=== PATIENT | female | born 1935 | race Asian ===

== ENCOUNTER 2016-07-19 02:31 | Inpatient (IN) | payer OTHER ==
[2016-07-19] VITALS (7 sets, daily range): BP systolic 130–168; BP diastolic 73–105
[~2016-07-19] VITALS: Ht 162.6 cm; Wt 78.5 kg
--- NOTE | 2016-07-19 02:31 | NUR ---
Patient being evaluated by physician at bedside.
--- NOTE | 2016-07-19 02:31 | NUR ---
[facility] TO ER BED 2
[2016-07-19] MEDS ORDERED: NACL 0.9% 1,000 ML IV ONE (02:33)
[2016-07-19] MEDS ORDERED: ALBUTEROL SULFATE/IPRATROPIU 3 ML SOL IH ONE (02:35)
[2016-07-19] MEDS ORDERED: methylPREDNISolone SS 125 MG in WATER STERILE 2 ML IV ONE (02:35)
--- NOTE | 2016-07-19 02:40 | NUR ---
PT BIB AMBULANCE DUE TO SOB. PLACED ON BIPAP WITH NOTED SETTINGS. BREATH SOUNDS DIMINISHED BILATERALLY, ABG DONE, HHN INLINE TX GIVEN. BIPAP ALARMS ON AND AUDIBLE, BIPAP PLUGGED INTO RED ELECTRICAL OUTLET. AMBU BAG AT [facility].
--- NOTE | 2016-07-19 02:40 | NUR ---
Note undone in EDM - 07/19/16 at 0320 by MEDPA 81/F [facility] AND [facility] C/O SOB X 30MIN, ALOC, B-PAP,HHN ER MD AT BEDSIDE. RATE12 35% FIO2, IPAP-12/EPAP-5. AAOx4, PERMIN. KISHAD NOTIFIED OF PATIENT STATUS.
[2016-07-19] MEDS ORDERED: LEVOFLOXACIN 750 MG/D5W PREMIX 150 ML IV ONE (02:55)
[2016-07-19] MEDS ORDERED: AMOXICILLIN500 MG PO (02:57)
[2016-07-19] MEDS ORDERED: GOOD SENSE OMEP20 MG PO (02:57)
[2016-07-19] MEDS ORDERED: SINEMET 25-1001 TA1 PO (02:57)
[2016-07-19] MEDS ORDERED: [UNRECOGNIZED DRUG - OTHER] PO (02:57)
[2016-07-19] MEDS ORDERED: PHENERGAN/CODEIN5 ML PO (02:57)
[2016-07-19] MEDS ORDERED: TENORMIN50 M1 PO (02:57)
--- NOTE | 2016-07-19 03:20 | NUR ---
81/F BIB [facility] AND [facility] C/O SOB X 30MIN, ALOC, B-PAP,HHN ER MD AT BEDSIDE. RATE12 35% FIO2, IPAP-12/EPAP-5. PATIENT STATES PAIN OF 0/10 AT THIS TIME; VSS; PATIENT POSITIONED FOR COMFORT; HOB ELEVATED; BEDRAILS UP X2; BED DOWN. ER MD MADE AWARE OF PT STATUS.
--- NOTE | 2016-07-19 03:21 | NUR ---
Patient being evaluated by physician at bedside.
--- NOTE | 2016-07-19 03:30 | NUR ---
# 16 FR [place] catheter with ml utilizing sterile technique. Immediate return of ml urine noted. Bedside drainage bag placed below level of bladder. Urine sample collected and sent to lab. Pt tolerated procedure .
[2016-07-19] MEDS ORDERED: NACL 0.9% 1,500 ML IV ONE (03:45)
[2016-07-19] MEDS ORDERED: ONDANSETRON 4 MG/2 ML VIAL IVP PRN (04:20)
[2016-07-19] MEDS ORDERED: ACETAMINOPHEN 325 MG TAB PO PRN (04:20)
--- NOTE | 2016-07-19 04:21 | NUR ---
Patient will be admitted to care of DR LAU. Admited to TELE. Will go to room 109A. Belongings list completed. Report to VANI MARTIN.
[2016-07-19] MEDS ORDERED: ALBUTEROL 0.083% 2.5 MG/3 ML NEBU INH PRN (04:35)
--- NOTE | 2016-07-19 04:45 | NUR ---
RECEIVED PT FROM ER IN ROOM 109A. RESPIRATORY THERAPIST AT BEDSIDE CONNECTING PT TO BIPAP. NOTED SETTING AT THIS TIME ARE IPAP 12, EPAP 5, R12 AND FIOX 35%. PT OXYGEN SATURATION ON BIPAP IS NOTED AT 98%. PT IS SLOVAK SPEAKING, SON AT BEDSIDE TO TRANSLATE. PER SON JOSEPHINE, PT IS ALERT AND ORIENTED, STATES THAT PT IS NOT CONFUSED. PT DENIES PAIN OR CHEST PAIN. UPON AUSCULTATION, NOTED BILATERAL WHEEZES TO LUNGS, NOTED RR 26. IV ACCESS TO LEFT WRIST #20G, PATENT AND INTACT. SKIN INTACT. WILSON CATHETER IN PLACE DRAINING TO GRAVITY, OF YELLOW URINE. NO EDEMA NOTED. SAFETY AND FALL RISK PRECAUTIONS IMPLEMENTED. DISCUSSED PLAN OF CARE WITH PT AND SON, VERBALIZED UNDERSTANDING. CALL LIGHT WITHIN REACH. WILL CONTINUE TO MONITOR PT.
[2016-07-19] MEDS ORDERED: CLINDAMYCIN 600 MG/4 ML VIAL ONE (05:01)
[2016-07-19] MEDS: CLINDAMYCIN 600 MG in DEXTROSE 5% 50 ML IV SCH ×3 (05:02→20:18)
[2016-07-19] MEDS ORDERED: PNEUMOCOCCAL VACCINE 23 MCG/0.5 ML VIAL IMVAC SCH (05:45)
--- NOTE | 2016-07-19 05:46 | NUR ---
BIPAP CHECKED. PT AWAKE, HUMA BIPAP WELL. FAMILY AT BEDSIDE.
[2016-07-19] MEDS ORDERED: DEXTROSE 50% 50 ML SYR IVP PRN (06:15)
[2016-07-19] MEDS: ALBUTEROL 0.083% 2.5 MG/3 ML NEBU INH SCH ×2 (06:30→10:15)
[2016-07-19] MEDS: BLOOD GLUCOSE MONITORING 1 DEV DEV FS SCH ×4 (06:30→20:28)
--- NOTE | 2016-07-19 06:30 | NUR ---
REC'D PT ON ANA LILIA V60 BIPAP SETTINGS 12/5 RR 12 FIO2 35% ALARMS ON AND FUNCTIONING PROPERLY, AMBU BAG AT SIDE OF BIPAP AND BIPAP IS PLUGGED INTO RED OUTLET, I\L TX GIVEN WITH ALBUTEROL 2.5MG WITH NO ADVERSE REACTION POST TX B\S ARE DIMINISHED BILATERALLY, PT IS WEARING MED FACE MASK AND SKIN INTEGRITY IS INTACT
--- NOTE | 2016-07-19 06:30 | NUR ---
PT IS VERY AGITATED AND ANXIOUS VANI MARTIN NOTIFIED PT'S SON KEEPS RUBBING ON HER AND MAKING HER UPSET, VANI MARTIN CALLED AND INFORMED DRBella ON PTS CONDITION STATING MAYBE SHE NEEDS SOMETHING TO CALM HER HE DID ORDER ANY MEDS FOR HER. THE SON HAS BEEN ASKED TO LEAVE PT ALONE SO SHE CAN REST AND STILL WONT LEAVE HER ALONE
[2016-07-19] MEDS: INSULIN ASPART SLIDING SCALE 100 UNITS/ML VIAL SUBQ PRN ×4 (06:31→21:28)
--- NOTE | 2016-07-19 06:31 | NUR ---
PT GIVEN INSULIN COVERAGE FOR BLOOD GLUCOSE OF 300 PER MD ORDERS. WILL CONTINUE TO MONITOR PT.
--- NOTE | 2016-07-19 06:53 | NUR ---
MADE DR. OLIVA AWARE OF PT HAVING DIFFICULTY BREATHING, PT FEELING ANXIOUS AND BP OF 170/89. NOTED INCREASED RESPIRATORY RATE, MD AWARE. NO NEW ORDERS RECEIVED. PHYSICIAN TO SEE PT. RECOMMENDED PT TO HAVE MEDICATION AND OR MAYBE TRANSFER TO ICU.
--- NOTE | 2016-07-19 07:36 | NUR ---
ENDORSED PT TO STEPHANIE LUDWIG FOR CONTINUITY OF CARE AT PT BEDSIDE, PT OXYGEN SATURATION AT 97%, BIPAP STILL IN PLACE. PT ON CONTINUOUS PULSE OX.
--- NOTE | 2016-07-19 07:39 | NUR ---
RECEIVED REPORT FROM NIGHT RN. PT RESTING IN BED.AAOX3. PT ON BIPAP RT AT BEDSIDE. PT'S RESPIRATORY RATE IS 36. PT'S BREATHING IS LABORED. PT DENIES PAIN. IV SITE PATENT AND INTACT. WILSON CATHETER IS PATENT. CALL LIGHT WITHIN REACH. SAFETY MEASURES ENSURED. SON AT BEDSIDE. WILL CONTINUE TO MONITOR.
--- NOTE | 2016-07-19 07:52 | NUR ---
DR. EMMANUEL MADE AWARE OF PT'S LABORED BREATHING AND RR OF 40. NEW ORDERS RECEIVED. TO SEE PT.
[2016-07-19] MEDS ORDERED: CARBIDOPA/LEVODOPA 25/100 MG 1 TAB PO SCH (08:04)
[2016-07-19] MEDS ORDERED: FUROSEMIDE 40 MG/4 ML VIAL IVP SCH ×2 (08:05→08:08)
[2016-07-19] MEDS ORDERED: PANTOPRAZOLE 40 MG TABEC PO SCH (08:09)
--- NOTE | 2016-07-19 08:44 | NUR ---
bipap check, pt is now resting, pt is still tachypnea son is at bedside
[2016-07-19] MEDS: DOCUSATE SODIUM 100 MG GELCAP PO SCH (09:00)
[2016-07-19] MEDS: SACCHAROMYCES 250 MG CAP PO SCH ×2 (09:00→20:19)
[2016-07-19] MEDS: ATENOLOL 50 MG TAB PO SCH (09:00)
--- NOTE | 2016-07-19 09:42 | NUR ---
DR. EMMANUEL MADE AWARE OF PT REFUSING PO MEDICATIONS. PT STATES ITS TOO HARD TO BREATHE WHEN THE MASK ISNT ON RIGHT.
--- NOTE | 2016-07-19 09:45 | NUR ---
DR. EMMANUEL AT BEDSIDE. PT'S BREATHING APPEARS LABORED ON BIPAP. PT DENIES PAIN. WILL FOLLOW UP WITH PLAN OF CARE.
[2016-07-19] MEDS ORDERED: methylPREDNISolone SS 125 MG/2 ML VIAL IVP SCH ×2 (09:50→10:25)
--- NOTE | 2016-07-19 10:00 | NUR ---
ABG DRAWN ON RB WITHOUT INCIDENT AND RESULTS GIVEN TO DR. OLIVA AND NO CHANGES MADE TO BIPAP
--- NOTE | 2016-07-19 10:15 | NUR ---
BIPAP CHECK, I\L TX GIVEN WITH ALBUTEROL 2.MG WITH NO ADVERSE REACTION POST TX B\S ARE DIMINISHED. DR. SAVAGE AT BEDSIDE WITH NO CHANGES MADE TO BIPAP. KEEP O2 SAT ABOVE 92%
--- NOTE | 2016-07-19 11:50 | NUR ---
PT SLEEPING IN BED. NO S/S OF ACUTE DISTRESS. CALL LIGHT WITHIN REACH. FAMILY AT BEDSIDE. WILL CONTINUE TO MONITOR.
[2016-07-19] MEDS: CARBIDOPA/LEVODOPA 25/100 MG 1 TAB PO SCH ×2 (12:00→16:58)
[2016-07-19] MEDS: methylPREDNISolone SS 125 MG/2 ML VIAL IVP SCH ×2 (13:05→20:18)
[2016-07-19] MEDS ORDERED: NACL 0.9% 1,000 ML IV SCH (13:05)
--- NOTE | 2016-07-19 13:20 | NUR ---
BIPAP CHECK, PT IS NOW RESTING COMFORTABLY WITH FAMILY MEMBERS AT BEDSIDE
--- NOTE | 2016-07-19 14:40 | NUR ---
PT RESTING IN BED. NO S/S OF ACUTE DISTRESS. PT DENIES PAIN. BIPAP IN PLACE. CALL LIGHT WITHIN REACH. WILL CONTINUE TO MONITOR.
[2016-07-19] MEDS: ALBUTEROL SULFATE/IPRATROPIU 3 ML SOL IH SCH ×2 (15:31→20:21)
--- NOTE | 2016-07-19 15:31 | NUR ---
BIPAP CHECK, I\L TX GIVEN WITH DUONEB 3ML WITH NO ADVERSE REACTION POST TX,. B\S ARE DIMINISHED, DECREASED FIO2 TO 30% PT IS NOW RESTING COMFORTABLY NOW
--- NOTE | 2016-07-19 16:59 | NUR ---
PT RESTING IN BED. NO S/S OF ACUTE DISTRESS. PT DENIES PAIN. CALL LIGHT WITHIN REACH. WILL CONTINUE TO MONITOR.
--- NOTE | 2016-07-19 17:30 | NUR ---
bipap check pt is having ultra sound of leg with family at bedside
--- NOTE | 2016-07-19 17:56 | NUR ---
SPOKE TO DR. OLIVA REGARDING PT NOT EATING AND BLOOD SUGAR. PER MD HOLD 1700 INSULIN AND RECHECK AT NEXT SCHEDULED TIME.
--- NOTE | 2016-07-19 19:14 | NUR ---
ENDORSED PLAN OF CARE TO NIGHT RN. PT REMAINS IN STABLE CONDITION.
--- NOTE | 2016-07-19 19:18 | NUR ---
RECEIVED REPORT FROM DAYSHIFT RN FOR CONTINUITY OF CARE. PATIENT IS A&OX3. SHIFT ASSESSMENT DONE, VS TAKEN. PATIENT IS STABLE. NO S/S OF RESPIRATORY DISTRESS ON BIPAP AT THIS TIME, O2 SAT 99-100%. PATIENT DENIES PAIN AT THIS TIME. IV TO LT WRIST 20 GAUGE PATENT AND INFUSING FLUIDS WELL. WILSON CATHETER IN PLACE. SKIN INTACT, EDEMA TO BLE NOTED. SAFETY/ FALL PRECAUTIONS ENFORCED. SCDS IN PLACE. CALL LIGHT WITHIN REACH, WILL CONTINUE TO MONITOR.
--- NOTE | 2016-07-19 20:18 | NUR ---
MEDICATIONS ADMINISTERED PER MD ORDER, TOLERATED WELL. PT ON BIPAP, RT IN ROOM FOR BREATHING TX. CALL LIGHT WITHIN REACH.
--- NOTE | 2016-07-19 21:28 | NUR ---
PT BLOOD SUGAR 295, INSULIN GIVEN PER MD ORDER. PT STATES DIFFICULTY BREATHING WITH BIPAP. CONTACTED RT AND EDUCATED PT.
[2016-07-19] MEDS: HYDROcodone/APAP 5/325 MG 1 TAB TAB PO PRN (23:36)
--- NOTE | 2016-07-19 23:36 | NUR ---
PT C/O 11/21 LOWER BACK PAIN, MEDICATED PER MD ORDER. PT FAMILY MEMBER PROVIDING MASSAGE. PT IS UP SITTING AT EDGE OF BED NO S/S OF DISTRESS NOTED. CALL LIGHT PLACED WITHIN REACH.
[2016-07-20] VITALS: BP 154/74
--- NOTE | 2016-07-20 00:42 | NUR ---
VS TAKEN, STABLE. REPOSITIONED PATIENT. PT REFUSING SCDS AT THIS TIME. CALL LIGHT WITHIN REACH.
--- NOTE | 2016-07-20 03:00 | NUR ---
PT IS SLEEPING ON BIPAP. NO S/S OF DISTRESS NOTED.
[2016-07-20 04:00] VITALS: BP 142/60
[2016-07-20] MEDS: CLINDAMYCIN 600 MG in DEXTROSE 5% 50 ML IV SCH ×3 (04:13→20:10)
--- NOTE | 2016-07-20 04:15 | NUR ---
VS TAKEN, STABLE. DUE ANTIBIOTICS ADMINISTERED. WILL CONTINUE TO MONITOR.
[2016-07-20] MEDS: methylPREDNISolone SS 40 MG/ML VIAL IVP SCH ×3 (05:20→20:10)
[2016-07-20] MEDS: PANTOPRAZOLE 40 MG TABEC PO SCH (05:41)
[2016-07-20] MEDS: BLOOD GLUCOSE MONITORING 1 DEV DEV FS SCH ×4 (05:50→20:21)
--- NOTE | 2016-07-20 05:52 | NUR ---
BLOOD SUGAR 307, WILL ADMINISTER INSULIN PER MD ORDER. REMOVED BIPAP AND PROVIDED ORAL CARE. WILL CONTINUE TO MONITOR.
[2016-07-20] MEDS: INSULIN ASPART SLIDING SCALE 100 UNITS/ML VIAL SUBQ PRN ×4 (06:11→21:38)
[2016-07-20] MEDS: ALBUTEROL SULFATE/IPRATROPIU 3 ML SOL IH SCH ×4 (06:37→19:32)
--- NOTE | 2016-07-20 06:37 | NUR ---
RECEIVED PT ON QUACH V60 ON ST 12\5 RR 12 FIO2 30 ALARMS ARE ON AND FUNCTIONAL PT IN HF AWAKE DAUGHTER AT BEDSIDE PT WEARING F\F MASK BS RHONCI BIPAP PLUGGED INTO RED OUTLET NO DISTRESS NOTED I\L HHN GIVEN WITH 3 MG DUONEB SIZE MED MASK GEL UNDER MASK
--- NOTE | 2016-07-20 07:26 | NUR ---
ENDORSED PATIENT TO MILTON RN FOR CONTINUITY OF CARE, PATIENT IS STABLE.
--- NOTE | 2016-07-20 07:30 | NUR ---
RECEIVED ON BED AAOX3 WITH PERIODS OF CONFUSION, TRINIDADIAN SPEAKING ONLY. NO SOB NOTED, ON BIPAP WITH 100% O2 SATURATION. NO SIGNS OF PAIN AT THIS TIME. IV TO LT WRIST PATENT AND INTACT. CHEST, DIMINISHED AIR ENTRY TO THE BASES. ABDOMEN SOFT, BOWEL SOUNDS PRESENT. WITH WILSON CATHETER DRAINING MODERATE AMOUNTS OF SLIGHTLY CLOUDY TOMMY URINE. WILL REPOSITION PT EVERY 2 HRS. INSTRUCTED PT TO CALL FOR ASSISTANCE, CALL LIGHT WITHIN REACH, BED ALARM ON AND ON LOW POSITION. PT VERBALIZED PARTIAL UNDERSTANDING.
--- NOTE | 2016-07-20 07:55 | NUR ---
REMOVED BIPAP PER MILTON RN PLACED 2 L N\C FOR PT TO EAT SPO2 100
[2016-07-20 08:00] VITALS: BP 146/69
[2016-07-20] MEDS: CARBIDOPA/LEVODOPA 25/100 MG 1 TAB PO SCH ×3 (08:00→17:00)
--- NOTE | 2016-07-20 08:23 | NUR ---
REPORTED TO DR SAVAGE PT ON 2L TOLERATING WELL AT THIS TIME
[2016-07-20] MEDS: SACCHAROMYCES 250 MG CAP PO SCH ×2 (09:00→20:10)
[2016-07-20] MEDS: DOCUSATE SODIUM 100 MG GELCAP PO SCH (09:00)
[2016-07-20] MEDS: HYDROcodone/APAP 5/325 MG 1 TAB TAB PO PRN ×2 (09:05→15:35)
[2016-07-20] MEDS: ATENOLOL 50 MG TAB PO SCH (09:08)
--- NOTE | 2016-07-20 10:04 | NUR ---
PATIENT HAS BEEN SCREENED AND CATEGORIZED HIGH NUTRITION RISK. PATIENT WILL BE SEEN WITHIN 1-2 DAYS OF ADMISSION. 07/19/16-07/20/[address]
[2016-07-20 12:00] VITALS: BP 150/74
--- NOTE | 2016-07-20 14:00 | NUR ---
PT SEEN BY DR. RIVERA WITH ORDERS.
--- NOTE | 2016-07-20 14:10 | NUR ---
07/20/16 RD INITIAL ASSESSMENT COMPLETED PLEASE REFER TO NUTRITION ASSESSMENT UNDER CARE ACTIVITY FOR ESTIMATED NUTRITIONAL NEEDS. RD RECOMMENDATIONS: 1. RECOMMEND CCHO 60 GM, 2GM SODIUM, SOFT DIET TOLERATED PER MD 2. ENCOURAGE INCREASED PO INTAKES 3. RD TO ADD DIET HEALTH SHAKE TID TO HELP INCREASE KCAL AND PROTEIN INTAKE --WILL ADD ADDITIONAL 600 KCAL AND 21 GM PROTEIN TO DAILY DIET 4. RD WILL F/U 3-5 DAYS; MODERATE RISK. JORGE RAMIREZ RD
[2016-07-20] MEDS ORDERED: FUROSEMIDE 40 MG/4 ML VIAL IVP SCH (14:17)
[2016-07-20] MEDS ORDERED: LACTULOSE 20 GM/30 ML UDC PO SCH (14:33)
--- NOTE | 2016-07-20 15:50 | NUR ---
ABG DRAWN ON RB BY RT Renetta VELÁSQUEZ WITHOUT INCIDENT AND AT 1600 RESULTS GIVEN TO WITH NO CHANGES MADE
[2016-07-20 16:00] VITALS: BP 149/73
[2016-07-20] MEDS: metFORMIN 850 MG TAB PO SCH (18:21)
--- NOTE | 2016-07-20 19:00 | NUR ---
PT AWAKE. NO SOB NOTED. NO COMPLAINTS MADE. ON 2 LITERS NASAL CANNULA AT 98% O2 SATS. FAMILY AT BEDSIDE. ENDORSED TO NEXT SHIFT NURSE.
--- NOTE | 2016-07-20 19:25 | NUR ---
RECEIVED REPORT FROM MILTON RN FOR CONTINUITY OF CARE. PATIENT IS A&OX3, GEORGIAN SPEAKING, DAUGHTER AT BEDSIDE FOR TRANSLATION. SHIFT ASSESSMENT DONE, VS TAKEN. NO S/S OF RESPIRATORY DISTRESS ON ON NASAL CANNULA 2L O2 SAT 100%. PATIENT DENIES PAIN AT THIS TIME. IV TO LT WRIST 20 GAUGE PATENT AND FLUSHED. WILSON CATHETER IN PLACE DRAINING PALE YELLOW URINE. SKIN INTACT, EDEMA TO BLE +1 PITTING NOTED. SAFETY/ FALL PRECAUTIONS ENFORCED. PATIENT REFUSED SCDS AT THIS TIME. CALL LIGHT WITHIN REACH, WILL CONTINUE TO MONITOR.
[2016-07-20 20:00] VITALS: BP 135/99
--- NOTE | 2016-07-20 20:10 | NUR ---
DUE MEDICATIONS ADMINISTERED, TOLERATED WELL. ANTIBIOTICS INFUSING, IV INTACT. BLOOD SUGAR 374, WILL ADMINISTER INSULIN PER MD ORDER. PATIENT PROVIDED WATER AND IS NOW RESTING. CALL LIGHT WITHIN REACH.
[2016-07-20] MEDS: SIMVASTATIN 10 MG TAB PO SCH (20:11)
[2016-07-20] MEDS: ALBUTEROL SULFATE/IPRATROPIU 3 ML SOL IH PRN (21:54)
--- NOTE | 2016-07-20 21:54 | NUR ---
PATIENT C/O TIGHTNESS IN CHEST. REQUESTED BREATHING TX. CONTACTED RT AND REPOSITIONED PATIENT.
--- NOTE | 2016-07-20 23:56 | NUR ---
ASSISTED PATIENT TO RESTROOM, HAD A SMALL BOWEL MOVEMENT. RETURNED TO BED AND MADE COMFORTABLE. VS TAKEN, STABLE. CALL LIGHT PLACED WITHIN REACH.
[2016-07-21] VITALS: BP 150/74
--- NOTE | 2016-07-21 02:00 | NUR ---
PATIENT REQUESTED WATER, TOLERATED WELL. NO S/S OF RESPIRATORY DISTRESS NOTED ON 3L O2. CALL LIGHT WITHIN REACH.
[2016-07-21 04:00] VITALS: BP 160/56
[2016-07-21] MEDS: methylPREDNISolone SS 40 MG/ML VIAL IVP SCH ×2 (04:08→12:10)
[2016-07-21] MEDS: HYDROcodone/APAP 5/325 MG 1 TAB TAB PO PRN (04:09)
[2016-07-21] MEDS: CLINDAMYCIN 600 MG in DEXTROSE 5% 50 ML IV SCH ×3 (04:23→21:33)
--- NOTE | 2016-07-21 04:23 | NUR ---
VS TAKEN. PT ASSISTED TO RESTROOM, HAD SMALL BM. PROVIDED CHANGE OF LINENS AND GOWN. DUE MEDICATIONS GIVEN, PT ALSO C/O 12/21 HIP PAIN, GAVE MASSAGE AND MEDICATIONS PER PT REQUEST.
[2016-07-21] MEDS: PANTOPRAZOLE 40 MG TABEC PO SCH (06:02)
[2016-07-21] MEDS: BLOOD GLUCOSE MONITORING 1 DEV DEV FS SCH ×4 (06:22→21:33)
--- NOTE | 2016-07-21 06:22 | NUR ---
BLOOD SUGAR 170, WILL ADMINISTER INSULIN PER MD ORDER. PT IS RESTING.
[2016-07-21] MEDS: INSULIN ASPART SLIDING SCALE 100 UNITS/ML VIAL SUBQ PRN ×4 (06:41→21:36)
[2016-07-21] MEDS: ALBUTEROL SULFATE/IPRATROPIU 3 ML SOL IH SCH (07:17)
--- NOTE | 2016-07-21 07:20 | NUR ---
ENDORSED PATIENT TO DAY SHIFT RN FOR CONTINUITY OF CARE, PATIENT IS STABLE.
--- NOTE | 2016-07-21 07:25 | NUR ---
RECEIVED REPORT FROM NIGHT NURSE JANES, VANI FOR CONTINUITY OF CARE. PATIENT APPEARED TO BE CALM AWAKE AND RESTING WELL IN BED.A&OX4, SENEGALESE SPEAKING, NO SOB OR SIGN OF RESPIRATORY DISTRESS NOTED. ON 2L O2 NC WITH O2 SAT AT 99%. INITIAL ASSESSMENT DONE. SKIN INTACT. PATIENT STATED HAVING CHRONIC LEFT LOWER BACK PAIN, TURNED PATIENT TO RIGHT LATERAL, PATIENT STATED IT HELPED. VS TAKEN AND WNL. IV TO LT WRIST 20 GAUGE PATENT AND FLUSHED WELL. WILSON CATHETER IN PLACE DRAINING PALE YELLOW URINE. EDEMA NOTED TO BLE +1 PITTING. SAFETY/ FALL PRECAUTIONS ENFORCED. SCDS IN PLACE. PLAN OF CARE AND MEDICATION REGIMENTS DISCUSSED, PATIENT VERBALIZED UNDERSTANDING. CALL LIGHT WITHIN REACH, WILL CONTINUE TO MONITOR.
[2016-07-21 08:00] VITALS: BP 142/95
[2016-07-21] MEDS: DOCUSATE SODIUM 100 MG GELCAP PO SCH (08:47)
[2016-07-21] MEDS: SACCHAROMYCES 250 MG CAP PO SCH ×2 (08:48→21:34)
[2016-07-21] MEDS: metFORMIN 850 MG TAB PO SCH ×2 (08:48→16:21)
[2016-07-21] MEDS: ASPIRIN 81 MG TAB.CHEW PO SCH (08:48)
[2016-07-21] MEDS: LISINOPRIL 5 MG TAB PO SCH (08:48)
[2016-07-21] MEDS: CARBIDOPA/LEVODOPA 25/100 MG 1 TAB PO SCH ×3 (08:48→16:19)
[2016-07-21] MEDS: ATENOLOL 50 MG TAB PO SCH (08:49)
[2016-07-21] MEDS ORDERED: guaiFENesin DM 200/20 MG-10 ML 10 ML UDC PO PRN (08:50)
--- NOTE | 2016-07-21 08:50 | NUR ---
MORNING DUE MEDICATIONS WITH TEACHING GIVEN, PATIENT VERBALIZED UNDERSTANDING. PATIENT REMAINED CALM AND RESTING WELL IN BED. DENIED ANY PAIN OR DISCOMFORT. ALL NEEDS ARE MET. CALL LIGHT WITHIN REACH. WILL CONTINUE TO MONITOR.
[2016-07-21] MEDS ORDERED: FUROSEMIDE 40 MG/4 ML VIAL IVP SCH ×2 (09:00)
[2016-07-21] MEDS: LEVOFLOXACIN 750 MG/D5W PREMIX 150 ML IV SCH (09:02)
[2016-07-21] MEDS ORDERED: PIOGLITAZONE 30 MG TAB PO SCH (09:38)
--- NOTE | 2016-07-21 11:13 | NUR ---
PATIENT SLEEP WELL AND SOUNDLY IN BED. NO SIGN OF SOB OR RESPIRATORY DISTRESS NOTED. 100% O2 SAT ON MONITOR WITH O2 2L NC. HEAD OF BED ELEVATED. ALL COMFORT AND SAFETY MEASURE GIVEN. CALL LIGHT WITHIN REACH. WILL CONTINUE TO MONITOR.
[2016-07-21 12:00] VITALS: BP 149/74
--- NOTE | 2016-07-21 13:00 | NUR ---
PER DR RIVERA, WEAN PATIENT OFF TO ROOM AIR. AND MONITOR PATIENT OXYGEN SAT.
[2016-07-21 16:00] VITALS: BP 169/83
--- NOTE | 2016-07-21 16:28 | NUR ---
NOTIFIED DR GIBBS AND HE AWARE PATIENT'S BLOOD SUGAR OF 402 AND BP 169/83, P62. STATED TO GIVE PATIENT 10UNITS OF INSULIN FOR NOW.
--- NOTE | 2016-07-21 17:00 | NUR ---
PATIENT UNABLE TO COUGH UP SPUTUM FOR CULTURE. PATIENT STATED " IT STUCK IN MY THROAT ALL DAY AND I COULD NOT COUGH UP ANY"
[2016-07-21] MEDS ORDERED: SIMETHICONE 80 MG TAB.CHEW PO SCH (18:14)
--- NOTE | 2016-07-21 19:17 | NUR ---
ENDORSED PATIENT CURRENT PLAN OF CARE TO NIGHT NURSE GIRMA, PATIENT RESTING WELL IN BED WITH NO SIGN OF DISTRESS NOTED. PATIENT O2 SAT 98% ON ROOM AIR. FAMILY MEMBER AT BEDSIDE.
--- NOTE | 2016-07-21 19:20 | NUR ---
RECEIVED FROM AM RN AWAKE AND ALERT. PT. IS STANDING UP BESIDE BED AND DOING ROM. ABLE TO VERBALIZE NEEDS IN HUNGARIAN DIALECT. FAMILY VISITING ABLE TO UNDERSTAND AND SPEAK TUNISIAN. PT. CARE PLANS FOR THE NIGHT DISCUSSED WITH THEM AND PT. CALL LIGHT WITH IN REACH. AFEBRILE. COUGHING INTERMITTENTLY. DX. PNA AND UTI. PT. ON ROOM AIR WITH 02 SAT OF 99%.
[2016-07-21 20:00] VITALS: BP 160/85
[2016-07-21] MEDS: SIMVASTATIN 10 MG TAB PO SCH (21:34)
[2016-07-21] MEDS: PROMETH/CODEINE 6.25-10MG/5ML 5 ML UDC PO PRN (21:34)
--- NOTE | 2016-07-21 22:00 | NUR ---
STILL AWAKE AND TALKING WITH FAMILY MEMBERS. NO SOB. ON ROOM AIR . 02 SAT 99%. TELEMETRY MONITORING.
[2016-07-22] VITALS (7 sets, daily range): BP systolic 147–181; BP diastolic 72–92
--- NOTE | 2016-07-22 01:17 | NUR ---
SLEEPING AT THIS TIME. SON AT BEDSIDE WATCHING OVER MOTHER. NO COMPLAINTS DONE.
--- NOTE | 2016-07-22 04:46 | NUR ---
PT. WOKE UP RT LAB. TECH COLLECTED BLOOD SPECIMEN. NO COMPLAINTS DONE. SON AT BEDSIDE. PT. PREFERRED TO PUT 02 BACK AND 02 SAT AT 100 %.
[2016-07-22] MEDS: CLINDAMYCIN 600 MG in DEXTROSE 5% 50 ML IV SCH ×3 (05:04→20:36)
[2016-07-22] MEDS: BLOOD GLUCOSE MONITORING 1 DEV DEV FS SCH ×4 (06:14→20:39)
[2016-07-22] MEDS: PANTOPRAZOLE 40 MG TABEC PO SCH (06:16)
[2016-07-22] MEDS: INSULIN ASPART SLIDING SCALE 100 UNITS/ML VIAL SUBQ PRN ×3 (06:18→20:38)
[2016-07-22] MEDS: HYDROcodone/APAP 5/325 MG 1 TAB TAB PO PRN (06:23)
--- NOTE | 2016-07-22 07:05 | NUR ---
RECEIVED REPORT FROM NIGHT NURSE VANI RAYO FOR CONTINUITY OF CARE. PATIENT APPEARED TO BE ASLEEP, EASILY AROUSAL TO NAME CALLED. PT RESTING WELL IN BED.A&OX4, IRISH SPEAKING, NO SOB OR SIGN OF RESPIRATORY DISTRESS NOTED. ON 2L O2 NC WITH O2 SAT AT 99%. INITIAL ASSESSMENT DONE. SKIN INTACT. PATIENT HAS NO C/O PAIN AT THIS TIME. IV TO LT WRIST 20 GAUGE PATENT AND FLUSHED WELL AND 24G TO RIGHT WRIST INTACT AND FLUSHED WELL. WILSON CATHETER IN PLACE DRAINING PALE YELLOW URINE. EDEMA NOTED TO BLE +1 PITTING. SAFETY/ FALL PRECAUTIONS ENFORCED. SCDS IN PLACE. PLAN OF CARE AND MEDICATION REGIMENTS DISCUSSED, PATIENT VERBALIZED UNDERSTANDING. CALL LIGHT WITHIN REACH, WILL CONTINUE TO MONITOR. Addendum: 07/22/16 at 0721 by Elmer Barker RN PATIENT ON ROOM AIR INSTEAD OF O2 2L NC. O2 SAT AT 98% ON ROOM AIR.
--- NOTE | 2016-07-22 07:19 | NUR ---
NEW LINE TO RIGHT HAND #24 INSERTED RT OLD IVF SITE INFILTRATED. TOLERATED WELL. GOOD BLOOD RETURN.ENDORSED TO THE NEXT RN FOR CONTINUITY OF CARE. AWAKE AND ALERT. NO COMPLAINTS DONE.
[2016-07-22] MEDS: ALBUTEROL SULFATE/IPRATROPIU 3 ML SOL IH PRN ×3 (07:33→15:27)
--- NOTE | 2016-07-22 08:00 | NUR ---
PT WITH LOW HEART RATE 49 T0 54 RN AWARE
--- NOTE | 2016-07-22 08:20 | NUR ---
AWAKE AND ALERT NO DISTRESS NOTED APPLICATIONS PROCESSOR UNABLE TO DRAW ARTERIAL BLOOD GAS AT THIS TIME PATIENT WITH BREAKFAST TRAY APPLICATIONS PROCESSOR TO ATTEMPT AT A LATER TIME
[2016-07-22] MEDS: SACCHAROMYCES 250 MG CAP PO SCH ×2 (08:24→20:35)
[2016-07-22] MEDS: ASPIRIN 81 MG TAB.CHEW PO SCH (08:24)
[2016-07-22] MEDS: CARBIDOPA/LEVODOPA 25/100 MG 1 TAB PO SCH ×3 (08:24→17:11)
[2016-07-22] MEDS: metFORMIN 850 MG TAB PO SCH ×2 (08:24→17:11)
[2016-07-22] MEDS: DOCUSATE SODIUM 100 MG GELCAP PO SCH (08:24)
[2016-07-22] MEDS: LISINOPRIL 5 MG TAB PO SCH (08:24)
[2016-07-22] MEDS: PIOGLITAZONE 30 MG TAB PO SCH (08:25)
--- NOTE | 2016-07-22 08:27 | NUR ---
MORNING DUE PO MEDICATIONS GIVEN WITH TEACHING, PATIENT TOLERATED WELL AND VERBALIZED UNDERSTANDING. ALL SIGN OF DISTRESS NOTED. ALL NEEDS ARE MET. CALL LIGHT WITHIN REACH. WILL CONTINUE TO MONITOR.
[2016-07-22] MEDS: ATENOLOL 50 MG TAB PO SCH (09:00)
--- NOTE | 2016-07-22 09:15 | NUR ---
PATIENT WITH PHYSICAL THERAPY FOR 6 MINUTE WALK RECREATION TECHNICIAN TO ATTEMPT ABG PROCEDURE AT A LATER TIME
--- NOTE | 2016-07-22 09:22 | NUR ---
PATIENT WAS AMBULATING WITH PT AROUND HALLWAY WITH O2 SAT 93-94% EVERY MINUTES ON ROOM AIR. NO SOB OR SIGN OF DISTRESS NOTED. DENIED ANY PAIN OR CHEST DISCOMFORT. PATIENT BACK TO BED SAFELY. CALL LIGHT WITHIN REACH. WILL CONTINUE TO MONITOR.
--- NOTE | 2016-07-22 09:29 | NUR ---
GAVE PATIENT A CUP AND INSTRUCTED HER TO SPIT SPUTUM IN IT WHEN SHE GETS CHANCES. PATIENT VERBALIZED UNDERSTANDING.
--- NOTE | 2016-07-22 10:46 | NUR ---
SS NOTE: I SPOKE WITH PT'S GRANDDTR, YANIV ([phone]) AND PT'S DTR, POORNIMA BEDSIDE WITH PT. I PROVIDED YANIV WITH A SNF LIST FOR PT. SHE STATED THAT THEY HAVE A LOT OF FAMILY IN THE [place] AND WOULD LIKE [facility] SINCE IT IS VERY CLOSE TO THEIR HOUSE. SHE ALSO STATED THAT IF [facility] DOES NOT HAVE A BED THEN THEY ARE IN AGREEMENT WITH PT GOING TO [facility] SINCE IT IS ALSO IN [place].
--- NOTE | 2016-07-22 11:22 | NUR ---
ASSISTED PATIENT TO BATHROOM AND BACK TO BED SAFELY, PATIENT TOLERATED WELL. PATINET HAS ONE LARGE OF BROWN LOOSE BOWEL MOVEMENT. NO SIGN OF DISTRESS NOTED. PATIENT HAS NO C/O DISCOMFORT. CALL LIGHT WITHIN REACH. WILL CONTINUE TO MONITOR.
--- NOTE | 2016-07-22 11:36 | NUR ---
SS NOTE: PER YAYO FROM [facility] ([phone]), PT HAS BEEN ACCEPTED AND THEY WILL HAVE A BED AVAILABLE FOR PT UPON DISCHARGE. PT'S GRANDDTR, YANIV MADE AWARE.
--- NOTE | 2016-07-22 12:20 | NUR ---
DR RIVERA IS HERE TO SEE PATIENT. NO NEW ORDER RECEIVED.
--- NOTE | 2016-07-22 14:59 | NUR ---
PATIENT SLEEP WELL AND SOUNDLY IN BED. NO SIGN OF SOB OR RESPIRATORY DISTRESS NOTED AT THIS TIME. ALL NEEDS ARE MET. CALL LIGHT WITHIN REACH. WILL CONTINUE TO MONITOR.
--- NOTE | 2016-07-22 16:15 | NUR ---
NOTIFIED DR NIELSEN AND HE AWARE PATIENT'S ELEVATED BP. BP 168/76, HR 61.
--- NOTE | 2016-07-22 17:30 | NUR ---
SPUTUM COLLECTED AND SENT TO LAB. NO SIGN OF DISTRESS NOTED AT THIS TIME. DENIED ANY DISCOMFORT. FAMILY MEMBER AT BED SIDE. CALL LIGHT WITHIN REACH. WILL CONTINUE TO MONITOR.
--- NOTE | 2016-07-22 18:13 | NUR ---
CHECKED ON PT FOR SPUTUM VANI COLVIN IMFORMED ME HE SENT SPUTUM
--- NOTE | 2016-07-22 19:21 | NUR ---
ENDORSED PATIENT CURRENT PLAN OF CARE TO NIGHT NURSE NAYA LUDWIG. PATIENT RESTING WELL SITING IN CHAIR. WITH NO SIGN OF DISTRESS NOTED.
--- NOTE | 2016-07-22 19:25 | NUR ---
RECEIVED PT SITTING ON BEDSIDE CHAIR, ON ROOM AIR, NO SOB NOTED, VITAL SIGNS TAKEN, BP ELEVATED, WILL RECHECKED AGAIN LATER, DENIES CHEST PAIN, WILSON CATH IN PLACE WITH PALE YELLOW OUTPUT, SAFETY MEASURES IN PLACE, FAMILY MEMBER AT BEDSIDE, CALL LIGHT WITHIN REACH.
[2016-07-22] MEDS: SIMVASTATIN 10 MG TAB PO SCH (20:35)
--- NOTE | 2016-07-22 21:20 | NUR ---
BP RECHECKED-172/72, HR-55, DENIES CHEST PAIN, NO SOB NOTED, PAGED DR Abraham PAUL AND MADE AWARE, WILL ORDER PRN MEDICATION.
[2016-07-22] MEDS ORDERED: hydrALAZINE 20 MG/ML VIAL IVP PRN (21:30)
--- NOTE | 2016-07-22 22:15 | NUR ---
BP CHECKED-187/79, HR-56, APRESOLINE IVP GIVEN, MEDICATED FOR COUGH PRN, PUT ON OXYGEN AT 2L/NC PER PT REQUEST, ASSISTED TO SIT ON BEDSIDE CHAIR BY FAMILY MEMBER, MONITORED CLOSELY.
--- NOTE | 2016-07-22 23:30 | NUR ---
PT SLEEPING ON BEDSIDE CHAIR WITH FAMILY MEMBER BESIDE HER, EASILY AROUSABLE, VITAL SIGNS TAKEN, BP-161/80, DENIES PAIN, NO SOB NOTED, CONTINUE TO MONITOR CLOSELY.
[2016-07-23] VITALS (7 sets, daily range): BP systolic 130–185; BP diastolic 73–87
[2016-07-23] MEDS: PROMETH/CODEINE 6.25-10MG/5ML 5 ML UDC PO PRN (02:06)
--- NOTE | 2016-07-23 03:45 | NUR ---
PT SEEN SLEEPING ON BEDSIDE CHAIR WITH LEGS ON THE BED, PER SON SHE'S VERY COMFORTABLE ON THIS POSITION, PT EASILY AROUSABLE, VITAL SIGNS STABLE, NO SOB NOTED, DENIES ANY PAIN, INSTRUCTED TO USE CALL LIGHT FOR ASSISTANCE, CALL LIGHT WITHIN REACH.
[2016-07-23] MEDS: CLINDAMYCIN 600 MG in DEXTROSE 5% 50 ML IV SCH (04:26)
[2016-07-23] MEDS: PANTOPRAZOLE 40 MG TABEC PO SCH (06:04)
[2016-07-23] MEDS: INSULIN ASPART SLIDING SCALE 100 UNITS/ML VIAL SUBQ PRN ×4 (06:07→21:47)
--- NOTE | 2016-07-23 06:16 | NUR ---
AM LABS DRAWN, BLOOD SUGAR CHECKED WITH 151 RESULT, COVERAGE GIVEN, DUE PO MEDICATION TAKEN, NO SOB NOTED, CALL LIGHT WITHIN REACH.
[2016-07-23] MEDS: BLOOD GLUCOSE MONITORING 1 DEV DEV FS SCH ×4 (06:59→21:46)
--- NOTE | 2016-07-23 07:15 | NUR ---
PT SITTING ON BEDSIDE CHAIR, NO SIGNS OF DISTRESS, REPORT GIVEN TO VANI SANCHEZ FOR CONTINUITY OF CARE.
--- NOTE | 2016-07-23 07:20 | NUR ---
RECEIVED REPORT FROM THE GEOSCIENCES PROFESSOR NURSE AT BEDSIDE FOR CONTINUITY OF CARE. PATIENT IS AWAKE, ALERT, AND ORIENTED X4. ABLE TO FOLLOW COMMAND AND CLEAR SPEECH. IV ON THE RIGHT WRIST ASYMPTOMATIC, INTACT, PATENT. IV FLUID INFUSING WELL. INITIAL ASSESSMENT DONE. ON ROOM AIR. NO SOB. SKIN INTACT. O2 SAT IS 100%. ABLE TO AMBULATE TO THE BATHROOM WITH ASSISTANCE. NO S/S OF DISTRESS. VITALS TAKEN AND B/P ELEVATED. WILSON IN PLACED INTACT AND PATENT WITH YELLOW CLEAR URINE. PATIENT COMPLAINED VOMITING AND FEELING BLOATED WILL LET MD KNOW . SAFETY MEASURED CHECKED AND WILL CONTINUE TO MONITOR. CALL LIGHT WITHIN REACH.
[2016-07-23] MEDS ORDERED: ALBUTEROL SULFATE/IPRATROPIU 3 ML SOL IH PRN (07:27)
[2016-07-23] MEDS ORDERED: CARVEDILOL 3.125 MG TAB PO SCH (08:00)
--- NOTE | 2016-07-23 08:30 | NUR ---
DUE MEDS GIVEN. PATIENT TOLERATED WELL. WILL CONTINUE TO MONITOR.
[2016-07-23] MEDS: metFORMIN 850 MG TAB PO SCH (08:41)
[2016-07-23] MEDS: CARBIDOPA/LEVODOPA 25/100 MG 1 TAB PO SCH ×3 (08:41→17:14)
[2016-07-23] MEDS: LISINOPRIL 10 MG TAB PO SCH ×2 (08:42→09:00)
[2016-07-23] MEDS ORDERED: LACTULOSE 20 GM/30 ML UDC PO SCH (09:00)
[2016-07-23] MEDS ORDERED: FUROSEMIDE 20 MG TAB PO SCH (09:00)
[2016-07-23] MEDS: LEVOFLOXACIN 750 MG/D5W PREMIX 150 ML IV SCH (09:39)
[2016-07-23] MEDS: DOCUSATE SODIUM 100 MG GELCAP PO SCH ×2 (09:40→21:48)
[2016-07-23] MEDS: ASPIRIN 81 MG TAB.CHEW PO SCH (09:40)
[2016-07-23] MEDS: SACCHAROMYCES 250 MG CAP PO SCH ×2 (09:40→21:48)
[2016-07-23] MEDS: PIOGLITAZONE 30 MG TAB PO SCH (09:40)
--- NOTE | 2016-07-23 11:30 | NUR ---
BLOOD SUGAR CHECKED ELEVATED TO 233 INSULIN COVERAGE GIVEN.
--- NOTE | 2016-07-23 12:00 | NUR ---
VITALS TAKEN AND B/P ELEVATED WILL CONTINUE TO MONITOR.
--- NOTE | 2016-07-23 13:00 | NUR ---
PATIENT CONTINUE TO VOMIT, ZOFRAN GIVEN.
--- NOTE | 2016-07-23 14:18 | NUR ---
PATIENT IS ASLEEP, NO S/S OF RESPIRATORY DISTRESS. O2 SAT AT 100%.
[2016-07-23] MEDS ORDERED: LISINOPRIL 10 MG TAB PO SCH (14:42)
[2016-07-23] MEDS ORDERED: HYDROCHLOROTHIAZIDE 25 MG TAB PO SCH (14:45)
--- NOTE | 2016-07-23 15:00 | NUR ---
LISINOPRIL AND HYDROCHLOROTHIAZIDE GIVEN FOR ELEVATED BLOOD PRESSURE OF 158/73. WILL CONTINUE TO MONITOR. FAMILY AT BEDSIDE.
--- NOTE | 2016-07-23 16:00 | NUR ---
VITAL TAKEN AND BLOOD PRESSURE HAVE DECREASE TO 146/73. WILL CONTINUE TO MONITOR.
[2016-07-23] MEDS: metFORMIN 500 MG TAB PO SCH (17:13)
--- NOTE | 2016-07-23 19:11 | NUR ---
RECEVEID PT REPORT FORM LAURA LUDWIG AT BEDSIDE FOR CONTINUTIY OF CARE, PT NOTED STABLE.
--- NOTE | 2016-07-23 19:28 | NUR ---
REPORT GIVEN TO ACCOUNTS RECEIVABLE COLLECTOR NURSE FOR CONTINUITY OF CARE AT BEDSIDE. PATIENT IN STABLE CONDITION AND ALL NEED MET AT THIS TIME.
--- NOTE | 2016-07-23 19:48 | NUR ---
SHIFT ASSESSMENT DONE. PT IS A/O X3, SRI LANKAN SPEAKING. PT FAMILY AT BESIDE TO TRANSLATE. PT DENIES PAIN AND DISCOMFORT, DENIED N/V AND OR DIARRHEA. PT VSS ARE STABLE, PT ON ROOM AIR WITH OXYGEN SATURATION NOTED AT 98%. NO RESPIRATORY DISTRESS NOTED. SKIN IS INTACT. LUNG SOUND ARE CLEAR, BOWEL SOUNDS ACTIVE. SCD'S IN PLACE. IV ACCESS TO LEFT WRIST # 20, PATENT AND INTACT. IV ACCESS TO RT HAND #24G, PATENT AND INTACT. PT STATES TO HAVE HAD BM TODAY. DISCUSSED PLAN OF CARE WITH PT AND FAMILY, VERBALIZED UNDERSTANDING. CALL LIGHT WITHIN REACH. WILL CONTINUE TO MONITOR PT.
--- NOTE | 2016-07-23 21:45 | NUR ---
PT AMBULATED TO BATHROOM, PT HAD SMALL REGULAR BM. SCD'S PLACED ON, AND PT BACK IN BED. WILSON CATHETER IN PLACE.
--- NOTE | 2016-07-23 21:47 | NUR ---
PT PROVIDED INSULIN MD ORDERS, FOR BLOOD GLUCOSE OF 199. PT ASYMPTOMATIC. NO DISTRESS. WILL CONTINUE TO MONITOR PT.
[2016-07-23] MEDS: SIMVASTATIN 10 MG TAB PO SCH (21:48)
[2016-07-24] VITALS: BP 134/73
--- NOTE | 2016-07-24 00:36 | NUR ---
VITAL SIGNS REMAIN STABLE. PT WAS SLEEPING COMFORTABLY WITH NO ACUTE RESPIRATORY DISTRESS. OXYGEN SATURATION IS 97%.
--- NOTE | 2016-07-24 02:39 | NUR ---
PT NOTED SLEEPING WELL, NO ACUTE DISTRESS. NO RESPIRATORY DISTRESS NOTED.
[2016-07-24 04:00] VITALS: BP 165/93
--- NOTE | 2016-07-24 04:26 | NUR ---
PAGED DR. PAUL TO NOTIFY OF PT BLOOD PRESSURE OF 165/93, PT ASYMPTOMATIC. NO DISTRESS NOTED, DENIES PAIN. SITTING IN CHAIR.
--- NOTE | 2016-07-24 04:32 | NUR ---
SPOKE TO DR. PAUL IBella, MADE AWARE OF PT BP OF 165/93, WILL PLACE ORDER.
[2016-07-24] MEDS ORDERED: hydrALAZINE 20 MG/ML VIAL IVP PRN (04:45)
--- NOTE | 2016-07-24 04:53 | NUR ---
PT SITTING IN CHAIR, ADVISED TO LIE DOWN ON BED. PT REFUSING.
--- NOTE | 2016-07-24 04:59 | NUR ---
ADMINISTERED BP MED PER MD ORDERS. PT ASYMPTOMATIC. NO DISTRESS.
[2016-07-24] MEDS: PANTOPRAZOLE 40 MG TABEC PO SCH (06:06)
[2016-07-24] MEDS: BLOOD GLUCOSE MONITORING 1 DEV DEV FS SCH ×2 (06:11→11:37)
[2016-07-24] MEDS: INSULIN ASPART SLIDING SCALE 100 UNITS/ML VIAL SUBQ PRN ×2 (06:12→12:07)
--- NOTE | 2016-07-24 07:16 | NUR ---
ENDORSED PT TO LAURA LUDWIG AT PT BEDSIDE FOR CONTINUITY OF CARE. PT STABLE.
--- NOTE | 2016-07-24 07:30 | NUR ---
RECEIVED REPORT FROM THE BIRD KEEPER NURSE VERONICA AT BEDSIDE FOR CONTINUITY OF CARE. PATIENT IS AWAKE, ALERT, AND ORIENTED X4. ABLE TO FOLLOW COMMAND. IV ON THE RIGHT WRIST ASYMPTOMATIC, INTACT, PATENT. IV FLUID INFUSING WELL. INITIAL ASSESSMENT DONE. ON ROOM AIR. NO SOB. SKIN INTACT. O2 SAT IS 100%. ABLE TO AMBULATE TO THE BATHROOM WITH ASSISTANCE. NO S/S OF DISTRESS. VITALS TAKEN AND B/P ELEVATED. WILSON IN PLACED INTACT AND PATENT WITH YELLOW CLEAR URINE. SAFETY MEASURED CHECKED AND WILL CONTINUE TO MONITOR. CALL LIGHT WITHIN REACH.
[2016-07-24 07:56] VITALS: BP 154/76
--- NOTE | 2016-07-24 08:29 | NUR ---
BIPAP ON STANDBY AT BEDSIDE, PATIENT SITTING IN CHAIR. BS CLEAR, NO SOB NOTED SAO2 995, HR 72 RR 16BPM.
--- NOTE | 2016-07-24 08:30 | NUR ---
ALL DUE MED GIVE PATIENT TOLERATED WELL. CALL LIGHT WITHIN REACH.
[2016-07-24] MEDS: metFORMIN 500 MG TAB PO SCH (08:33)
[2016-07-24] MEDS: PIOGLITAZONE 30 MG TAB PO SCH (08:33)
[2016-07-24] MEDS: CARBIDOPA/LEVODOPA 25/100 MG 1 TAB PO SCH ×2 (08:33→12:10)
[2016-07-24] MEDS: ASPIRIN 81 MG TAB.CHEW PO SCH (08:33)
[2016-07-24] MEDS: DOCUSATE SODIUM 100 MG GELCAP PO SCH (08:34)
[2016-07-24] MEDS: SACCHAROMYCES 250 MG CAP PO SCH (08:34)
[2016-07-24] MEDS ORDERED: HYDROCHLOROTHIAZIDE 25 MG TAB PO SCH (09:00)
[2016-07-24] MEDS ORDERED: LISINOPRIL 20 MG TAB PO SCH (09:00)
--- NOTE | 2016-07-24 09:54 | NUR ---
SS NOTE: PER YAYO FROM [facility] ([phone]), PT CAN GO TO ROOM 6B ANYTIME UNDER DR. Graeme CHAUHAN. RAIN OCHOA.
[2016-07-24] MEDS ORDERED: COLACE100 M1 PO (10:05)
[2016-07-24] MEDS ORDERED: SIMVASTATIN10 M1 PO (10:05)
[2016-07-24] MEDS ORDERED: LISINOPRIL20 M1 PO (10:05)
[2016-07-24] MEDS ORDERED: FUROSEMIDE20 M1 PO (10:05)
[2016-07-24] MEDS ORDERED: FLORASTOR 33 MG1 CAP PO (10:05)
[2016-07-24] MEDS ORDERED: LEVAQUIN750 MG IV (10:05)
[2016-07-24] MEDS ORDERED: ACTOS30 M1 PO (10:05)
[2016-07-24] MEDS ORDERED: HCTZ PO (10:05)
[2016-07-24] MEDS ORDERED: METFORMIN HCL500 MG PO (10:05)
[2016-07-24] MEDS ORDERED: ROBITUSSIN/DEXT10 ML PO (10:05)
--- NOTE | 2016-07-24 10:34 | NUR ---
CM NOTE PATIENT HAS IEHP SECONDARY. SPOKE WITH RAIN NICHOLS OF [facility] PH# [phone] WHO GAVE THE AMB AUTH# [id number]. SPOKE WITH CHULA OF [facility] PH# [phone]. TRANSPORT SET UP WITH [facility], PHYSICAL THERAPIST TECHNICIAN TIME 1230PM TODAY GOING TO [facility] 6B PH# [phone]. CHARGE NURSE MELA EXT [phone] AND NURSE MENA EXT [phone] AWARE AND THEY ARE ALSO AWARE THAT THEY NEED TO GIVE THE PATIENT'S GRANDDAUGHTER YANIV A CALL TO LET THE FAMILY KNOW PH# [phone].
[2016-07-24 10:46] VITALS: BP 152/76
--- NOTE | 2016-07-24 11:30 | NUR ---
GIVEN REPORT TO SHAZIA LUDWIG FROM [facility].
--- NOTE | 2016-07-24 11:30 | NUR ---
BLOOD SUGAR CHECKED AND ELEVATED TO 249, 4 UNIT NOVOLOG COVERAGE GIVEN.
--- NOTE | 2016-07-24 12:40 | NUR ---
PATIENT PICKED UP BY AMBULANCE TO BE TRANSFERRED TO [facility]. PATIENT GIVEN EDUCATION ABOUT DISCHARGED MEDICATION, FOLLOW UP AND DISCHARGED INSTRUCTION. PATIENT SIGNED ALL DISCHARGED PAPER. COPY OF PATIENT'S INFORMATION GIVEN. PATIENT IS IN STABLE CONDITION.
== END 2016-07-24 12:40 | DRG 871 ==
LOC: MED 02:31 → MTU 04:07
PROVIDERS: ADMIT Student in an Organized Health Care Education/Training Program; ATTEND Student in an Organized Health Care Education/Training Program
PROC: 5A09457 Assistance with Respiratory Ventilation, 24-96 Consecutive Hours, Continuous Positive Airway Pressure (ICD-10-PCS; principal; 2016-07-19)
DX: A41.9 Sepsis, unspecified organism (principal); J69.0 Pneumonitis due to inhalation of food and vomit; N17.0 Acute kidney failure with tubular necrosis; I50.43 Acute on chronic combined systolic (congestive) and diastolic (congestive) heart failure; E43 Unspecified severe protein-calorie malnutrition; J96.21 Acute and chronic respiratory failure with hypoxia; N39.0 Urinary tract infection, site not specified; E87.1 Hypo-osmolality and hyponatremia; J44.1 Chronic obstructive pulmonary disease with (acute) exacerbation; J44.0 Chronic obstructive pulmonary disease with (acute) lower respiratory infection; I42.9 Cardiomyopathy, unspecified; K56.7 Ileus, unspecified; D64.9 Anemia, unspecified; E11.65 Type 2 diabetes mellitus with hyperglycemia; E11.51 Type 2 diabetes mellitus with diabetic peripheral angiopathy without gangrene; E87.8 Other disorders of electrolyte and fluid balance, not elsewhere classified; B96.1 Klebsiella pneumoniae [K. pneumoniae] as the cause of diseases classified elsewhere; I27.2 Other secondary pulmonary hypertension; E86.0 Dehydration; R65.20 Severe sepsis without septic shock; E66.01 Morbid (severe) obesity due to excess calories; I11.0 Hypertensive heart disease with heart failure; K21.9 Gastro-esophageal reflux disease without esophagitis; I16.0 Hypertensive urgency; K56.41 Fecal impaction; G20 Parkinson's disease; Z53.29 Procedure and treatment not carried out because of patient's decision for other reasons; Z71.3 Dietary counseling and surveillance; Z88.0 Allergy status to penicillin; Z79.2 Long term (current) use of antibiotics; Z79.899 Other long term (current) drug therapy; Z83.3 Family history of diabetes mellitus; Z80.9 Family history of malignant neoplasm, unspecified; Z84.89 Family history of other specified conditions; Z68.31 Body mass index [BMI] 31.0-31.9, adult

== ENCOUNTER 2017-02-05 11:08 | Inpatient (IN) | payer OTHER ==
[~2017-02-05] VITALS: Ht 157.5 cm; Wt 76.7 kg
[~2017-02-05 11:08] MED LIST: CARB1TAB8 PO; CODE118S2 PO; DOCU-67 PO; FURO20TA8 PO; LEVO750T2 IV; LISI-420 PO; METF500T4 PO; OMEP20TC24 PO; ORE25 PO; PIOG30TA6 PO; ROBDM PO; SACC250C1 PO; SIMV10TA6 PO; [UNRECOGNIZED DRUG - CODE] PO
[2017-02-05 11:38] VITALS: BP 111/68
[2017-02-05 12:34] LABS: BASOPHILS # (AUTO) 0.1 K/uL (0.00-0.22); BASOPHILS % (AUTO) 0.7 % (0.0-2.0); EOSINOPHILS # (AUTO) 0.2 K/uL (0-0.4); EOSINOPHILS % (AUTO) 1.1 % (0.0-4.0); HEMATOCRIT 36.8 % (36-48); HEMOGLOBIN 12.2 g/dL (12.0-16.0); LYMPHOCYTES # (AUTO) 0.6 K/uL (2.5-16.5); LYMPHOCYTES % (AUTO) 4.6 % (20.5-51.1); MEAN CORPUSCULAR HEMOGLOBIN 31 pg (27-31); MEAN CORPUSCULAR HGB CONC 33 g/dL (33-37); MEAN CORPUSCULAR VOLUME 93 fL (80-94); MONOCYTES # (AUTO) 0.8 K/uL (0.8-1.0); NEUTROPHILS # (AUTO) 12.4 K/uL (1.8-7.7); NEUTROPHILS % (AUTO) 87.6 % (42.2-75.2); PLATELET COUNT (AUTO) 288 K/uL (140-450); RED BLOOD CELL COUNT(AUTO) 3.96 MIL/uL (4.20-5.40); RED CELL DISTRIBUTION WIDTH 13.6 % (11.6-13.7); WHITE BLOOD COUNT (AUTO) 14.1 K/uL (4.8-10.8)
[2017-02-05 12:51] LABS: PROTHROMBIN TIME 10.1 secs (10.8-13.4)
[2017-02-05 13:05] LABS: ALBUMIN 3.2 g/dL (3.4-5.0); ANION GAP 14.1 (8-16); ASPARTATE AMINOTRANSFERASE 27 U/L (15-37); CARBON DIOXIDE 25.1 mmol/L (21-32); CHLORIDE 102 mmol/L (98-107); CREATININE 1.5 mg/dL (0.6-1.3); POTASSIUM 4.2 mmol/L (3.5-5.1); SODIUM SERUM 137 mmol/L (136-145); TOTAL BILIRUBIN 0.5 mg/dL (0.0-1.0); UREA NITROGEN, BLOOD 32 mg/dL (7-18)
[2017-02-05 13:09] LABS: GLUCOSE 521 mg/dL (74-106)
[2017-02-05] MEDS ORDERED: NACL 0.9% 1,000 ML IV ONE ×2 (13:10→14:15)
[2017-02-05] MEDS ORDERED: PIOG45TA PO (15:35)
[2017-02-05] MEDS ORDERED: ALEN10TA20 PO (15:35)
[2017-02-05] MEDS ORDERED: POTA8TER12 PO (15:35)
[2017-02-05] MEDS ORDERED: NIFE60TE8 PO (15:35)
[2017-02-05] MEDS ORDERED: ESOM40EC PO (15:35)
[2017-02-05] MEDS ORDERED: MONT10TA35 PO (15:35)
[2017-02-05] MEDS ORDERED: SITA100T8 PO (15:35)
[2017-02-05] MEDS ORDERED: GABA300C PO (15:35)
[2017-02-05] MEDS ORDERED: GLIP5TAB4 PO (15:35)
[2017-02-05] MEDS ORDERED: DETLA4 PO (15:35)
[2017-02-05] MEDS ORDERED: FERR325E14 PO (15:35)
[2017-02-05] MEDS ORDERED: METO25TE2 PO (15:35)
[2017-02-05] MEDS ORDERED: CELE200C PO (15:35)
[2017-02-05] MEDS ORDERED: ASPI81CT89 PO (15:35)
[2017-02-05 15:39] LABS: APPEARANCE,URINE SLIGHTLY CLOUDY (CLEAR); BILIRUBIN,URINE NEGATIVE (NEGATIVE); BLOOD, URINE 3+ (NEGATIVE); COLOR,URINE YELLOW (YELLOW); NITRITE, URINE NEGATIVE (NEGATIVE); UGLUCOSE 3+ (NEGATIVE)
[2017-02-05] MEDS ORDERED: CLOPIDOGREL 75 MG TAB PO ONE (15:40)
[2017-02-05] MEDS ORDERED: ASPIRIN 325 MG TAB PO ONE (15:40)
[2017-02-05] MEDS ORDERED: ENOXAPARIN 80 MG/0.8 ML SYR SUBQ ONE (15:40)
[2017-02-05 15:45] LABS: LEUKOCYTE ESTERASE ,URINE 1+ (NEGATIVE); RBC,URINE TOO NUMEROUS TO COUN /HPF (0-5); WBC,URINE 60-80 /HPF (0-5)
[2017-02-05] MEDS ORDERED: ACETAMINOPHEN 325 MG TAB PO PRN (15:55)
[2017-02-05] MEDS ORDERED: DOCUSATE SODIUM 100 MG GELCAP PO PRN (15:55)
[2017-02-05] MEDS ORDERED: ONDANSETRON 4 MG/2 ML VIAL IVP PRN (15:55)
[2017-02-05] MEDS ORDERED: DEXTROSE 50% 50 ML SYR IVP PRN (16:15)
[2017-02-05] MEDS ORDERED: MECLIZINE 25 MG TAB PO PRN (16:15)
[2017-02-05] MEDS ORDERED: VITD1000 PO (16:31)
[2017-02-05 17:10] LABS: CHOL/HDL RATIO 3.7 (1-4.5); FREE T4 (FREE THYROXINE) 1.29 ng/dL (0.76-1.46); PHOSPHORUS 3.6 mg/dL (2.5-4.9); THYROID STIMULATING HORMONE 0.56 uIU/mL (0.34-3.74)
[2017-02-05] MEDS: BLOOD GLUCOSE MONITORING 1 DEV DEV FS SCH ×2 (17:14→21:03)
[2017-02-05] MEDS: HYDROcodone/APAP 7.5/325 MG 1 TAB PO PRN ×2 (17:15→21:57)
[2017-02-05] MEDS: INSULIN LISPRO SLIDING SCALE 100 UNITS/ML VIAL SUBQ PRN ×2 (17:23→21:49)
[2017-02-05 17:32] VITALS: BP 147/73
[2017-02-05] MEDS: NACL 0.9% 500 ML IV SCH ×2 (18:35→19:45)
[2017-02-05] MEDS ORDERED: LACTOBACILLUS RHAMNOSUS GG 1 EACH CAP PO SCH (18:49)
[2017-02-05] MEDS: FUROSEMIDE 40 MG/4 ML VIAL IVP SCH (19:00)
[2017-02-05] MEDS: ASPIRIN 81 MG TAB.CHEW PO SCH (19:10)
[2017-02-05 20:00] VITALS: BP 125/69
[2017-02-05] MEDS ORDERED: ECOTRIN 81 MG TABEC PO ONE (20:20)
[2017-02-05] MEDS ORDERED: FUROSEMIDE 40 MG/4 ML VIAL IVP ONE (20:20)
[2017-02-05] MEDS ORDERED: METOPROLOL SUCCINATE 50 MG TABER PO SCH (21:00)
[2017-02-05] MEDS: CELECOXIB 100 MG CAP PO SCH (21:00)
[2017-02-05] MEDS: GABAPENTIN 300 MG CAP PO SCH (21:01)
[2017-02-05] MEDS: SIMVASTATIN 10 MG TAB PO SCH (21:01)
[2017-02-05] MEDS: glipiZIDE 5 MG TAB PO SCH (21:01)
[2017-02-05] MEDS: LEVOFLOXACIN 750 MG/D5W PREMIX 150 ML IV SCH (21:11)
[2017-02-06] VITALS (7 sets, daily range): BP systolic 89–117; BP diastolic 50–90
[2017-02-06] MEDS: HYDROcodone/APAP 7.5/325 MG 1 TAB PO PRN ×3 (04:56→14:08)
[2017-02-06 04:58] LABS: BASOPHILS # (AUTO) 0.1 K/uL (0.00-0.22); BASOPHILS % (AUTO) 1.5 % (0.0-2.0); EOSINOPHILS # (AUTO) 0.1 K/uL (0-0.4); EOSINOPHILS % (AUTO) 1.5 % (0.0-4.0); HEMATOCRIT 33.1 % (36-48); LYMPHOCYTES % (AUTO) 21.1 % (20.5-51.1); MEAN CORPUSCULAR HEMOGLOBIN 31 pg (27-31); MEAN CORPUSCULAR HGB CONC 33 g/dL (33-37); MEAN CORPUSCULAR VOLUME 94 fL (80-94); MONOCYTES % (AUTO) 10.8 % (1.7-9.3); NEUTROPHILS # (AUTO) 6.4 K/uL (1.8-7.7); NEUTROPHILS % (AUTO) 65.1 % (42.2-75.2); PLATELET COUNT (AUTO) 242 K/uL (140-450); RED BLOOD CELL COUNT(AUTO) 3.52 MIL/uL (4.20-5.40); RED CELL DISTRIBUTION WIDTH 13.7 % (11.6-13.7); WHITE BLOOD COUNT (AUTO) 9.6 K/uL (4.8-10.8)
[2017-02-06 05:24] LABS: ANION GAP 13.3 (8-16); CARBON DIOXIDE 26.1 mmol/L (21-32); CHLORIDE 106 mmol/L (98-107); CREATININE 1.8 mg/dL (0.6-1.3); GLUCOSE 166 mg/dL (74-106); POTASSIUM 4.4 mmol/L (3.5-5.1); SODIUM SERUM 141 mmol/L (136-145); UREA NITROGEN, BLOOD 40 mg/dL (7-18)
[2017-02-06 05:29] LABS: MAGNESIUM 1.9 mg/dL (1.8-2.4); PHOSPHORUS 3.5 mg/dL (2.5-4.9)
[2017-02-06] MEDS: BLOOD GLUCOSE MONITORING 1 DEV DEV FS SCH ×4 (06:27→20:27)
[2017-02-06] MEDS ORDERED: metFORMIN 500 MG TAB PO SCH (08:00)
[2017-02-06] MEDS: VITAMIN D 400 IU TAB PO SCH (08:31)
[2017-02-06] MEDS: FUROSEMIDE 40 MG/4 ML VIAL IVP SCH (08:31)
[2017-02-06] MEDS: TOLTERODINE LA 4 MG CAPER PO SCH (08:31)
[2017-02-06] MEDS: CELECOXIB 100 MG CAP PO SCH ×2 (08:32→20:10)
[2017-02-06] MEDS: LACTOBACILLUS RHAMNOSUS GG 1 EACH CAP PO SCH (08:32)
[2017-02-06] MEDS: glipiZIDE 5 MG TAB PO SCH ×2 (08:32→20:10)
[2017-02-06] MEDS: ASPIRIN 81 MG TAB.CHEW PO SCH (08:32)
[2017-02-06] MEDS: GABAPENTIN 300 MG CAP PO SCH ×2 (08:32→20:10)
[2017-02-06] MEDS: POTASSIUM CHLORIDE 8 MEQ TABER PO SCH (08:33)
[2017-02-06] MEDS: CARBIDOPA/LEVODOPA 25/100 MG 1 TAB PO SCH ×3 (08:33→16:05)
[2017-02-06] MEDS: LISINOPRIL 20 MG TAB PO SCH (08:41)
[2017-02-06] MEDS: METOPROLOL 25 MG TAB PO SCH ×2 (09:50→20:12)
[2017-02-06] MEDS ORDERED: METOPROLOL 25 MG TAB PO SCH (10:20)
[2017-02-06] MEDS: INSULIN LISPRO SLIDING SCALE 100 UNITS/ML VIAL SUBQ PRN ×3 (12:04→20:28)
[2017-02-06] MEDS: SIMVASTATIN 10 MG TAB PO SCH (20:10)
[2017-02-07 00:26] VITALS: BP 116/69
[2017-02-07 04:00] VITALS: BP 109/62
[2017-02-07 06:04] LABS: BASOPHILS # (AUTO) 0.3 K/uL (0.00-0.22); BASOPHILS % (AUTO) 4.2 % (0.0-2.0); EOSINOPHILS # (AUTO) 0.4 K/uL (0-0.4); EOSINOPHILS % (AUTO) 5.4 % (0.0-4.0); HEMATOCRIT 31.8 % (36-48); HEMOGLOBIN 10.3 g/dL (12.0-16.0); LYMPHOCYTES # (AUTO) 1.7 K/uL (2.5-16.5); LYMPHOCYTES % (AUTO) 24.8 % (20.5-51.1); MEAN CORPUSCULAR HEMOGLOBIN 30 pg (27-31); MEAN CORPUSCULAR HGB CONC 32 g/dL (33-37); MEAN CORPUSCULAR VOLUME 94 fL (80-94); MONOCYTES # (AUTO) 0.5 K/uL (0.8-1.0); MONOCYTES % (AUTO) 7.8 % (1.7-9.3); NEUTROPHILS # (AUTO) 4.1 K/uL (1.8-7.7); NEUTROPHILS % (AUTO) 57.8 % (42.2-75.2); PLATELET COUNT (AUTO) 225 K/uL (140-450); RED CELL DISTRIBUTION WIDTH 13.8 % (11.6-13.7)
[2017-02-07] MEDS: BLOOD GLUCOSE MONITORING 1 DEV DEV FS SCH ×4 (06:16→21:26)
[2017-02-07] MEDS: INSULIN LISPRO SLIDING SCALE 100 UNITS/ML VIAL SUBQ PRN ×3 (06:19→21:28)
[2017-02-07 06:35] LABS: ANION GAP 13.3 (8-16); CHLORIDE 101 mmol/L (98-107); CREATININE 2.6 mg/dL (0.6-1.3); GLUCOSE 170 mg/dL (74-106); POTASSIUM 4.3 mmol/L (3.5-5.1); SODIUM SERUM 136 mmol/L (136-145)
[2017-02-07 06:36] LABS: PHOSPHORUS 5.9 mg/dL (2.5-4.9)
[2017-02-07 06:43] LABS: UREA NITROGEN, BLOOD 67 mg/dL (7-18)
[2017-02-07 08:00] VITALS: BP 120/64
[2017-02-07] MEDS: CELECOXIB 100 MG CAP PO SCH ×2 (08:41→21:15)
[2017-02-07] MEDS: ASPIRIN 81 MG TAB.CHEW PO SCH (08:42)
[2017-02-07] MEDS: CARBIDOPA/LEVODOPA 25/100 MG 1 TAB PO SCH ×3 (08:42→17:17)
[2017-02-07] MEDS: LISINOPRIL 20 MG TAB PO SCH (08:42)
[2017-02-07] MEDS: VITAMIN D 400 IU TAB PO SCH (08:42)
[2017-02-07] MEDS: LACTOBACILLUS RHAMNOSUS GG 1 EACH CAP PO SCH (08:43)
[2017-02-07] MEDS: glipiZIDE 5 MG TAB PO SCH ×2 (08:43→21:15)
[2017-02-07] MEDS: METOPROLOL 25 MG TAB PO SCH ×2 (08:43→21:15)
[2017-02-07] MEDS: POTASSIUM CHLORIDE 8 MEQ TABER PO SCH (08:44)
[2017-02-07] MEDS: TOLTERODINE LA 4 MG CAPER PO SCH (08:44)
[2017-02-07] MEDS: GABAPENTIN 300 MG CAP PO SCH ×2 (08:51→21:15)
[2017-02-07] MEDS ORDERED: NITROGLYCERIN 0.4 MG TAB SL PRN (09:15)
[2017-02-07] MEDS: FUROSEMIDE 40 MG/4 ML VIAL IVP SCH (09:21)
[2017-02-07 12:00] VITALS: BP 131/73
[2017-02-07 16:00] VITALS: BP 127/57
[2017-02-07] MEDS: HYDROcodone/APAP 7.5/325 MG 1 TAB PO PRN (16:08)
[2017-02-07] MEDS: NACL 0.9% 500 ML IV SCH (18:35)
[2017-02-07 21:11] VITALS: BP 124/57
[2017-02-07] MEDS: LEVOFLOXACIN 750 MG/D5W PREMIX 150 ML IV SCH (21:14)
[2017-02-07] MEDS: SIMVASTATIN 10 MG TAB PO SCH (21:15)
[2017-02-08] VITALS: BP 125/60
[2017-02-08] MEDS: BLOOD GLUCOSE MONITORING 1 DEV DEV FS SCH ×4 (06:44→20:55)
[2017-02-08] MEDS: NACL 0.9% 500 ML IV SCH (07:24)
[2017-02-08 08:00] VITALS: BP 157/74
[2017-02-08 08:22] LABS: BASOPHILS # (AUTO) 0.2 K/uL (0.00-0.22); BASOPHILS % (AUTO) 3.1 % (0.0-2.0); EOSINOPHILS # (AUTO) 0.4 K/uL (0-0.4); EOSINOPHILS % (AUTO) 6.3 % (0.0-4.0); HEMATOCRIT 32.9 % (36-48); HEMOGLOBIN 10.9 g/dL (12.0-16.0); LYMPHOCYTES # (AUTO) 1.3 K/uL (2.5-16.5); LYMPHOCYTES % (AUTO) 20.8 % (20.5-51.1); MEAN CORPUSCULAR HEMOGLOBIN 31 pg (27-31); MEAN CORPUSCULAR HGB CONC 33 g/dL (33-37); MEAN CORPUSCULAR VOLUME 93 fL (80-94); MONOCYTES # (AUTO) 0.6 K/uL (0.8-1.0); MONOCYTES % (AUTO) 9.8 % (1.7-9.3); NEUTROPHILS # (AUTO) 3.5 K/uL (1.8-7.7); PLATELET COUNT (AUTO) 247 K/uL (140-450); RED BLOOD CELL COUNT(AUTO) 3.53 MIL/uL (4.20-5.40); RED CELL DISTRIBUTION WIDTH 13.8 % (11.6-13.7)
[2017-02-08] MEDS ORDERED: SIMETHICONE 40 MG/0.6 ML PO PRN (08:50)
[2017-02-08] MEDS: LACTOBACILLUS RHAMNOSUS GG 1 EACH CAP PO SCH (08:58)
[2017-02-08] MEDS: GABAPENTIN 300 MG CAP PO SCH ×2 (08:59→21:01)
[2017-02-08] MEDS: POTASSIUM CHLORIDE 8 MEQ TABER PO SCH (08:59)
[2017-02-08] MEDS: CARBIDOPA/LEVODOPA 25/100 MG 1 TAB PO SCH ×3 (09:00→16:58)
[2017-02-08] MEDS: LISINOPRIL 20 MG TAB PO SCH (09:00)
[2017-02-08] MEDS: CELECOXIB 100 MG CAP PO SCH (09:00)
[2017-02-08] MEDS: glipiZIDE 5 MG TAB PO SCH ×2 (09:00→21:01)
[2017-02-08] MEDS: FUROSEMIDE 20 MG/2 ML VIAL IVP SCH (09:01)
[2017-02-08] MEDS: ASPIRIN 81 MG TAB.CHEW PO SCH (09:02)
[2017-02-08] MEDS: TOLTERODINE LA 4 MG CAPER PO SCH (09:03)
[2017-02-08] MEDS: METOPROLOL 25 MG TAB PO SCH ×2 (09:03→20:00)
[2017-02-08] MEDS: VITAMIN D 400 IU TAB PO SCH (09:03)
[2017-02-08] MEDS: NACL 0.9% 1,000 ML IV SCH ×2 (09:45→20:52)
[2017-02-08] MEDS: CALCIUM ACETATE 667 MG TAB PO SCH ×3 (09:45→16:59)
[2017-02-08 11:27] LABS: ANION GAP 13.7 (8-16); CARBON DIOXIDE 24.8 mmol/L (21-32); CHLORIDE 105 mmol/L (98-107); CREATININE 1.7 mg/dL (0.6-1.3); GLUCOSE 105 mg/dL (74-106); POTASSIUM 4.5 mmol/L (3.5-5.1); SODIUM SERUM 139 mmol/L (136-145); UREA NITROGEN, BLOOD 57 mg/dL (7-18)
[2017-02-08] MEDS: INSULIN LISPRO SLIDING SCALE 100 UNITS/ML VIAL SUBQ PRN ×2 (12:17→17:56)
[2017-02-08 16:00] VITALS: BP 160/74
[2017-02-08 20:00] VITALS: BP 170/82
[2017-02-08] MEDS: HYDROcodone/APAP 7.5/325 MG 1 TAB PO PRN (20:00)
[2017-02-08 21:00] VITALS: BP 163/75
[2017-02-08] MEDS: SIMVASTATIN 10 MG TAB PO SCH (21:01)
[2017-02-08] MEDS ORDERED: NITROGLYCERIN 0.4 MG TAB SL PRN (23:35)
[2017-02-09] VITALS (7 sets, daily range): BP systolic 138–175; BP diastolic 50–79
[2017-02-09 05:25] LABS: BASOPHILS # (AUTO) 0.2 K/uL (0.00-0.22); BASOPHILS % (AUTO) 3.5 % (0.0-2.0); EOSINOPHILS # (AUTO) 0.4 K/uL (0-0.4); EOSINOPHILS % (AUTO) 6.6 % (0.0-4.0); HEMATOCRIT 31.3 % (36-48); HEMOGLOBIN 10.2 g/dL (12.0-16.0); LYMPHOCYTES # (AUTO) 1.9 K/uL (2.5-16.5); LYMPHOCYTES % (AUTO) 31.5 % (20.5-51.1); MEAN CORPUSCULAR HEMOGLOBIN 31 pg (27-31); MEAN CORPUSCULAR HGB CONC 33 g/dL (33-37); MEAN CORPUSCULAR VOLUME 93 fL (80-94); MONOCYTES # (AUTO) 0.7 K/uL (0.8-1.0); MONOCYTES % (AUTO) 10.8 % (1.7-9.3); NEUTROPHILS # (AUTO) 2.8 K/uL (1.8-7.7); NEUTROPHILS % (AUTO) 47.6 % (42.2-75.2); PLATELET COUNT (AUTO) 265 K/uL (140-450); RED BLOOD CELL COUNT(AUTO) 3.35 MIL/uL (4.20-5.40); RED CELL DISTRIBUTION WIDTH 13.5 % (11.6-13.7)
[2017-02-09] MEDS: BLOOD GLUCOSE MONITORING 1 DEV DEV FS SCH ×3 (05:43→16:41)
[2017-02-09 06:09] LABS: ANION GAP 11.7 (8-16); CARBON DIOXIDE 27.9 mmol/L (21-32); CHLORIDE 105 mmol/L (98-107); CREATININE 1.5 mg/dL (0.6-1.3); GLUCOSE 145 mg/dL (74-106); POTASSIUM 4.6 mmol/L (3.5-5.1); SODIUM SERUM 140 mmol/L (136-145); UREA NITROGEN, BLOOD 49 mg/dL (7-18)
[2017-02-09 06:13] LABS: PHOSPHORUS 4.4 mg/dL (2.5-4.9)
[2017-02-09] MEDS: NACL 0.9% 1,000 ML IV SCH ×2 (07:59→19:06)
[2017-02-09] MEDS: CALCIUM ACETATE 667 MG TAB PO SCH ×3 (08:11→16:28)
[2017-02-09] MEDS: VITAMIN D 400 IU TAB PO SCH (08:12)
[2017-02-09] MEDS: LACTOBACILLUS RHAMNOSUS GG 1 EACH CAP PO SCH (08:12)
[2017-02-09] MEDS: ASPIRIN 81 MG TAB.CHEW PO SCH (08:12)
[2017-02-09] MEDS: glipiZIDE 5 MG TAB PO SCH (08:13)
[2017-02-09] MEDS: GABAPENTIN 300 MG CAP PO SCH (08:13)
[2017-02-09] MEDS: POTASSIUM CHLORIDE 8 MEQ TABER PO SCH (08:13)
[2017-02-09] MEDS: CARBIDOPA/LEVODOPA 25/100 MG 1 TAB PO SCH ×3 (08:14→16:29)
[2017-02-09] MEDS: TOLTERODINE LA 4 MG CAPER PO SCH (08:14)
[2017-02-09] MEDS: FUROSEMIDE 20 MG/2 ML VIAL IVP SCH (08:15)
[2017-02-09] MEDS: METOPROLOL 25 MG TAB PO SCH (09:00)
[2017-02-09] MEDS: HYDROcodone/APAP 7.5/325 MG 1 TAB PO PRN (09:07)
[2017-02-09] MEDS ORDERED: METOPROLOL 25 MG TAB PO SCH ×3 (10:10→21:00)
[2017-02-09] MEDS ORDERED: LACT10CA PO (10:11)
[2017-02-09] MEDS ORDERED: ASPI81CT27 PO (10:11)
[2017-02-09] MEDS ORDERED: DEXT150S13 IV (10:11)
[2017-02-09] MEDS ORDERED: hydrALAZINE 10 MG TAB PO SCH ×2 (11:19→13:00)
[2017-02-09] MEDS: INSULIN LISPRO SLIDING SCALE 100 UNITS/ML VIAL SUBQ PRN ×2 (11:41→16:32)
[2017-02-09] MEDS ORDERED: HYDR-1102 PO (13:25)
== END 2017-02-09 21:15 | DRG 871 ==
LOC: MED 11:08 → MTU 16:04
PROVIDERS: ADMIT Family Medicine; ATTEND Family Medicine
DX: A41.9 Sepsis, unspecified organism (principal); N17.0 Acute kidney failure with tubular necrosis; J96.00 Acute respiratory failure, unspecified whether with hypoxia or hypercapnia; I50.43 Acute on chronic combined systolic (congestive) and diastolic (congestive) heart failure; E44.0 Moderate protein-calorie malnutrition; I24.9 Acute ischemic heart disease, unspecified; D68.59 Other primary thrombophilia; N39.0 Urinary tract infection, site not specified; E83.39 Other disorders of phosphorus metabolism; G20 Parkinson's disease; M41.9 Scoliosis, unspecified; I11.0 Hypertensive heart disease with heart failure; M94.0 Chondrocostal junction syndrome [Tietze]; I34.0 Nonrheumatic mitral (valve) insufficiency; I27.2 Other secondary pulmonary hypertension; K59.00 Constipation, unspecified; E66.9 Obesity, unspecified; R26.9 Unspecified abnormalities of gait and mobility; M43.17 Spondylolisthesis, lumbosacral region; M47.9 Spondylosis, unspecified; R80.9 Proteinuria, unspecified; G90.9 Disorder of the autonomic nervous system, unspecified; R31.9 Hematuria, unspecified; N32.81 Overactive bladder; I25.10 Atherosclerotic heart disease of native coronary artery without angina pectoris; E11.42 Type 2 diabetes mellitus with diabetic polyneuropathy; E11.51 Type 2 diabetes mellitus with diabetic peripheral angiopathy without gangrene; E11.65 Type 2 diabetes mellitus with hyperglycemia; M17.0 Bilateral primary osteoarthritis of knee; E78.5 Hyperlipidemia, unspecified; W01.0XXA Fall on same level from slipping, tripping and stumbling without subsequent striking against object, initial encounter; Z88.0 Allergy status to penicillin; Y92.002 Bathroom of unspecified non-institutional (private) residence as the place of occurrence of the external cause; Y99.8 Other external cause status; Y93.89 Activity, other specified; Z83.3 Family history of diabetes mellitus; Z80.9 Family history of malignant neoplasm, unspecified; Z82.49 Family history of ischemic heart disease and other diseases of the circulatory system; Z83.49 Family history of other endocrine, nutritional and metabolic diseases; Z68.31 Body mass index [BMI] 31.0-31.9, adult
CPT/HCPCS: 36415; 51702; 70450; 71010; 71250; 73560; 76770; 80048; 80053; 81001; 82009; 82150; 82948; 83036; 83605; 83690; 83735; 83880; 84100; 84439; 84443; 84484; 85025; 85610; 87040; 87077; 87081; 87086; 87186; 93005; 93880; 93925; 93970; 96360; 96361; 96372; 97110; 97116; 97530; 99285; C1758; J0696; J1650; J1815; J1940; J1956; J7030; J7060

== ENCOUNTER 2017-09-06 09:55 | Inpatient (IN) | payer OTHER ==
[~2017-09-06] VITALS: Ht 149.9 cm; Wt 68.5 kg
[2017-09-06 09:55] VITALS: BP 248/135
[~2017-09-06 09:55] MED LIST changes: +ACT30 PO; +ALEN10TA PO; +ASPI81CT89 PO; +ASPI81CT95 PO; +CELE200C PO; -CODE118S2 PO; +DETLA4 PO; +DOCU-299 PO; -DOCU-67 PO; +ESOM40EC PO; +FERR325E14 PO; +FURO-570 PO; -FURO20TA8 PO; +GABA300C PO; +GLIP5TAB4 PO; +HYDR-1102 PO; +LACT10CA PO; -LEVO750T2 IV; +LEVO750T2 PO; -LISI-420 PO; +MEMA10TA PO; +METO25TE2 PO; +MONT10TA35 PO; +OMEP20TC12 PO; -OMEP20TC24 PO; -PIOG30TA6 PO; +PIOG45TA67 PO; -ROBDM PO; -SACC250C1 PO; +SITA100T8 PO; +VAS2.5 PO; +VITD1000 PO
--- NOTE | 2017-09-06 09:56 | NUR ---
PT BIBA FOR SOB TO BED 10 ON A SIMPLE MASK
--- NOTE | 2017-09-06 10:00 | NUR ---
PATIENT BIBA TO ED WITH C/O OF SOB PT STILL RUNNING NEBULIZER AT TIME OF TRANSFER PT IS STATING AT 98% WITH DUO NUBULIZER AT 15 L. PARAMETICS HAD GIVEN 2 BREATHING TREATMENTS IN ROUTE TO HOSPITAL. ATROPINE NEBULZER AND THE DU NEBULATOR. PT DENIES N/V/D; SKIN IS INTACT PINK/WARM/DRY; AAO3 PT HAS HXT OF DEMENTIA AND HTN. WHEEZING NOTED IN BILATERAL LUNG BASES; AND USE OF ACCESSORY MUSCLES, HR EVEN AND REGULAR; PT DENIES ANY FEVER, OR CP, PT HAS DRY COUGH AT THIS TIME; PATIENT STATES PAIN OF 0/10 AT THIS TIME; PATIENT POSITIONED FOR COMFORT; HOB ELEVATED; BEDRAILS UP X2; BED DOWN. ER MD MADE AWARE OF PT STATUS.
--- NOTE | 2017-09-06 10:01 | NUR ---
XRAY AT BEDSIDE FOR CHEST EXAM
--- NOTE | 2017-09-06 10:17 | NUR ---
DR ROQUE EVALUATING PT AT BEDSIDE
[2017-09-06] MEDS ORDERED: FUROSEMIDE 40 MG/4 ML VIAL IVP ONE (10:25)
[2017-09-06] MEDS ORDERED: LEVOFLOXACIN 750 MG/D5W PREMIX 150 ML IV ONE (10:35)
[2017-09-06 11:09] LABS: HEMATOCRIT 35.7 % (36-48); HEMOGLOBIN 11.8 g/dL (12.0-16.0); MEAN CORPUSCULAR HEMOGLOBIN 31 pg (27-31); MEAN CORPUSCULAR HGB CONC 33 g/dL (33-37); MEAN CORPUSCULAR VOLUME 94.1 fL (80-94); PLATELET COUNT (AUTO) 197 K/uL (140-450); RED BLOOD CELL COUNT(AUTO) 3.79 MIL/uL (4.20-5.40); RED CELL DISTRIBUTION WIDTH 14.3 % (11.6-13.7); WHITE BLOOD COUNT (AUTO) 9.6 K/uL (4.8-10.8)
[2017-09-06 11:35] LABS: BILIRUBIN,URINE NEGATIVE (NEGATIVE); BLOOD, URINE 1+ (NEGATIVE); COLOR,URINE YELLOW (YELLOW); LEUKOCYTE ESTERASE ,URINE NEGATIVE (NEGATIVE); NITRITE, URINE POSITIVE (NEGATIVE); PH,URINE 7.5 (5.0-9.0); UGLUCOSE 2+ (NEGATIVE)
[2017-09-06 11:38] LABS: EOSINOPHILS % (MANUAL) 1 % (0-4); LYMPHOCYTES % (MANUAL) 16 % (20-46); MONOCYTES % (MANUAL) 3 % (5-12)
[2017-09-06 11:52] LABS: APPEARANCE,URINE HAZY (CLEAR)
[2017-09-06 11:53] LABS: RBC,URINE 0-5 (RARE) /HPF (0-5)
[2017-09-06 11:54] LABS: WBC,URINE 0-5 (RARE) /HPF (0-5)
--- NOTE | 2017-09-06 12:20 | NUR ---
[email or web address] [facility] [employer] REPORTER PHONE USED. ID # [id number]. PT IS REQUESTING FOOD. DR. ROQUE MADE AWARE. FOOD TRAY ORDERED FOR PATIENT.
--- NOTE | 2017-09-06 13:13 | NUR ---
Called for follow up with food tray order, spoke with Maria Dolores, food will be brought to ED shortly.
--- NOTE | 2017-09-06 13:27 | NUR ---
tessy Hurley at bedside to assist patient.
[2017-09-06] MEDS ORDERED: HYDROcodone/APAP 7.5/325 MG 1 TAB PO PRN (13:45)
[2017-09-06] MEDS ORDERED: ONDANSETRON 4 MG/2 ML VIAL IVP PRN (13:45)
[2017-09-06] MEDS ORDERED: ACETAMINOPHEN 325 MG TAB PO PRN (13:45)
[2017-09-06] MEDS ORDERED: ENALAPRILAT 2.5 MG/2 ML VIAL IVP ONE (14:00)
--- NOTE | 2017-09-06 14:33 | NUR ---
Family advised to bring all patient's medications from home to fill out our medication reconcilation. Family verbalized understanding.
[2017-09-06 14:45] VITALS: BP 179/73
--- NOTE | 2017-09-06 14:45 | NUR ---
PATIENT ADMITTED TO THE UNIT FROM ER. PATIENT AWAKE, ALERT AND ORIENTED. PATIENT AMBULATES WITH ASSIST. PATIENT ON 3L O2. NO SOB OR S/S OF DISTRESS AT THIS TIME. PATIENT DENIES PAIN. IV LINE NOTED ON THE LEFT FA, SALINE LOCKED. PATIENT PLACED ON TELE MONITORING. FALL PRECAUTIONS IN PLACE. PATIENT'S FAMILY PRESENT AT BEDSIDE. WILL CONTINUE TO MONITOR
--- NOTE | 2017-09-06 14:50 | NUR ---
Patient will be admitted to care of Dr Posey. Admited to telemetry floor room 121B. Belongings list completed. and family accompanied to floor. Report given to Danna LUDWIG.
[2017-09-06] MEDS ORDERED: LEVOFLOXACIN 500 MG/D5W PREMIX 100 ML IV SCH (14:55)
[2017-09-06] MEDS ORDERED: ALBUTEROL SULFATE/IPRATROPIU 3 ML SOL IH PRN (14:55)
[2017-09-06] MEDS ORDERED: DEXTROSE 50% 50 ML SYR IVP PRN (14:55)
[2017-09-06 15:54] LABS: CHLORIDE 100 mmol/L (98-107); SODIUM SERUM 136 mmol/L (136-145)
[2017-09-06 15:55] LABS: ASPARTATE AMINOTRANSFERASE 31 U/L (15-37); CREATININE 1.1 mg/dL (0.6-1.3); GLUCOSE 248 mg/dL (74-106); TOTAL BILIRUBIN 0.3 mg/dL (0.0-1.0); UREA NITROGEN, BLOOD 26 mg/dL (7-18)
[2017-09-06 15:56] LABS: ALBUMIN 3.2 g/dL (3.4-5.0)
[2017-09-06 16:00] VITALS: BP 182/78
--- NOTE | 2017-09-06 16:10 | NUR ---
MADE DR SHEPPARD AWARE OF PATIENT'S BP OF 182/78 . PATIENT RESTING IN BED. NO S/S OF DISTRESS
[2017-09-06] MEDS: BLOOD GLUCOSE MONITORING 1 DEV DEV FS SCH ×2 (16:30→21:16)
[2017-09-06] MEDS: NACL 0.9% 1,000 ML IV SCH (17:00)
[2017-09-06] MEDS: glipiZIDE 5 MG TAB PO SCH (17:56)
[2017-09-06] MEDS: ISOSORBIDE DINITRATE 10 MG TAB PO SCH (17:57)
[2017-09-06] MEDS: CARBIDOPA/LEVODOPA 25/100 MG 1 TAB PO SCH (17:57)
[2017-09-06] MEDS: metFORMIN 500 MG TAB PO SCH (17:57)
[2017-09-06] MEDS: INSULIN LISPRO SLIDING SCALE 100 UNITS/ML VIAL SUBQ PRN (18:02)
--- NOTE | 2017-09-06 19:29 | NUR ---
PATIENT REPORT GIVEN AT BEDSIDE. PATIENT ENDORSED IN STABLE CONDITION
--- NOTE | 2017-09-06 19:30 | NUR ---
RECEIVED REPORT FROM DAY NURSE, PATIENT AWAKE, ALERT AND ORIENTED. PATIENT AMBULATES WITH ASSIST. PATIENT ON 3L O2. NO SOB OR S/S OF DISTRESS AT THIS TIME. PATIENT DENIES PAIN. IV LINE NOTED ON THE LEFT FA, INFUSING WELL. PATIENT ON TELE MONITORING. FALL PRECAUTIONS IN PLACE. PATIENT'S FAMILY PRESENT AT BEDSIDE. WILL CONTINUE TO MONITOR
[2017-09-06 20:00] VITALS: BP 174/92
[2017-09-06] MEDS ORDERED: METOPROLOL SUCCINATE 50 MG TABER PO SCH (21:00)
[2017-09-06] MEDS: hydrALAZINE 10 MG TAB PO SCH (21:17)
[2017-09-06] MEDS: DOCUSATE SODIUM 100 MG GELCAP PO SCH (21:17)
[2017-09-06] MEDS: FUROSEMIDE 20 MG/2 ML VIAL IVP SCH (21:17)
[2017-09-06] MEDS: CELECOXIB 100 MG CAP PO SCH (21:18)
[2017-09-06] MEDS: SIMVASTATIN 20 MG TAB PO SCH (21:18)
[2017-09-06] MEDS: FERROUS SULFATE 325 MG TABEC PO SCH (21:18)
[2017-09-06] MEDS: GABAPENTIN 300 MG CAP PO SCH (21:19)
[2017-09-06] MEDS: METOPROLOL 25 MG TAB PO SCH (21:19)
[2017-09-07] VITALS: BP 145/68
--- NOTE | 2017-09-07 | NUR ---
VSS AT THIS TIME, WILL CONTINUE TO MONITOR
--- NOTE | 2017-09-07 03:00 | NUR ---
PT RESTING COMFORTABLY IN BED, NO S/S OF DISTRESS NOTED
[2017-09-07 04:00] VITALS: BP 154/72
[2017-09-07] MEDS: hydrALAZINE 10 MG TAB PO SCH ×4 (05:00→20:46)
[2017-09-07] MEDS: glipiZIDE 5 MG TAB PO SCH ×2 (06:54→17:17)
[2017-09-07] MEDS: ALENDRONATE 10 MG TAB PO SCH (06:54)
[2017-09-07] MEDS: BLOOD GLUCOSE MONITORING 1 DEV DEV FS SCH ×4 (06:58→20:46)
--- NOTE | 2017-09-07 07:20 | NUR ---
RECEIVED REPORT FROM NIGHTSHIFT NURSE. PT ASLEEP. NO S/S OF DISTRESS. IV L FOREARM 22G. BED LOWERED W CALL LIGHT WITHIN REACH. WILL CONTINUE TO MONITOR.
--- NOTE | 2017-09-07 07:39 | NUR ---
LEFT SPUTUM AT BEDSIDE. GAVE PT INSTRUCTIONS ON SPUTUM PROCEDURE.
--- NOTE | 2017-09-07 07:49 | NUR ---
REPORT GIVEN TO DAY NURSE FOR CONTINUITY OF CARE, PT IN STABLE CONDITION
[2017-09-07 08:20] VITALS: BP 158/62
[2017-09-07] MEDS: ISOSORBIDE DINITRATE 10 MG TAB PO SCH ×3 (08:24→17:17)
[2017-09-07] MEDS: LACTOBACILLUS RHAMNOSUS GG 1 EACH CAP PO SCH (08:24)
[2017-09-07] MEDS: DOCUSATE SODIUM 100 MG GELCAP PO SCH ×2 (08:25→20:48)
[2017-09-07] MEDS: HYDROCHLOROTHIAZIDE 25 MG TAB PO SCH (08:25)
[2017-09-07] MEDS: GABAPENTIN 300 MG CAP PO SCH ×2 (08:25→20:47)
[2017-09-07] MEDS: CARBIDOPA/LEVODOPA 25/100 MG 1 TAB PO SCH ×3 (08:26→17:16)
[2017-09-07] MEDS: metFORMIN 500 MG TAB PO SCH ×2 (08:27→17:17)
[2017-09-07] MEDS: CELECOXIB 100 MG CAP PO SCH ×2 (08:27→20:48)
[2017-09-07] MEDS: MEMANTINE 10 MG TAB PO SCH (08:27)
[2017-09-07] MEDS: CHOLECALCIFEROL 1,000 IU TAB PO SCH (08:28)
[2017-09-07] MEDS: ASPIRIN 81 MG TAB.CHEW PO SCH (08:28)
[2017-09-07] MEDS: FUROSEMIDE 20 MG/2 ML VIAL IVP SCH ×2 (08:29→20:47)
[2017-09-07] MEDS: METOPROLOL 25 MG TAB PO SCH ×2 (08:29→20:47)
--- NOTE | 2017-09-07 10:28 | NUR ---
PATIENT HAS BEEN SCREENED AND CATEGORIZED MODERATE NUTRITION RISK. PATIENT WILL BE SEEN WITHIN 3-5 DAYS OF ADMISSION. 09/09/17 - 09/11/[address]
--- NOTE | 2017-09-07 11:00 | NUR ---
FAXED INITIAL REVIEW TO [facility] [phone] PHONE TATUM [phone] I SPOKE WITH TATUM, REVIEW GO TO HER AT [facility]. NO NEED TO FAX TO [facility]
--- NOTE | 2017-09-07 11:30 | NUR ---
BLOOD SUGAR IS 148, NO INSULIN COVERAGE INDICATED. PATIENT IS SITTING IN CHAIR AND RESTING COMFORTABLY. NO S/S OF ACUTE DISTRESS AT THIS TIME ON OXYMIZER AT 2L.
[2017-09-07 12:00] VITALS: BP 102/51
[2017-09-07] MEDS: LEVOFLOXACIN 250 MG/D5 PREMIX 50 ML IV SCH (12:07)
[2017-09-07] MEDS: NACL 0.9% 1,000 ML IV SCH (13:43)
[2017-09-07 15:13] LABS: MAGNESIUM 1.8 mg/dL (1.8-2.4)
[2017-09-07 15:14] LABS: CHOL/HDL RATIO 3.1 (1-4.5); PHOSPHORUS 3.6 mg/dL (2.5-4.9)
[2017-09-07 16:23] VITALS: BP 161/69
--- NOTE | 2017-09-07 19:10 | NUR ---
PT REPORT GIVEN TO SUEDING MACHINE TENDER NURSE. PT IS ASLEEP. NO S/S OF DISTRESS WILL CONTINUE WITH PLAN OF CARE.
[2017-09-07 20:00] VITALS: BP 133/66
[2017-09-07] MEDS: FERROUS SULFATE 325 MG TABEC PO SCH (20:47)
[2017-09-07] MEDS: SIMVASTATIN 20 MG TAB PO SCH (20:47)
--- NOTE | 2017-09-07 22:30 | NUR ---
PT RESTING COMFORTABLY IN BED. PT SEEN SLEEPING WITH LOUIVITTON PURSE IN HAND UNDER THE SHEETS.
[2017-09-08] VITALS: BP 135/62
--- NOTE | 2017-09-08 | NUR ---
PT VSS AT THIS TIME. RR EVEN/UNLABORED. WILL CONTINUE TO MONITOR
--- NOTE | 2017-09-08 03:02 | NUR ---
PT VSS AT THIS TIME. RR EVEN/UNLABORED. WILL CONTINUE TO MONITOR
[2017-09-08 04:00] VITALS: BP 138/75
[2017-09-08] MEDS: hydrALAZINE 10 MG TAB PO SCH ×2 (05:23→13:02)
[2017-09-08] MEDS: glipiZIDE 5 MG TAB PO SCH ×2 (06:37→16:03)
[2017-09-08] MEDS: ALENDRONATE 10 MG TAB PO SCH (06:37)
[2017-09-08] MEDS: BLOOD GLUCOSE MONITORING 1 DEV DEV FS SCH ×2 (06:41→11:56)
[2017-09-08] MEDS: INSULIN LISPRO SLIDING SCALE 100 UNITS/ML VIAL SUBQ PRN (06:44)
[2017-09-08 06:46] LABS: BASOPHILS # (AUTO) 0.3 K/uL (0.00-0.22); EOSINOPHILS # (AUTO) 0.2 K/uL (0-0.4); EOSINOPHILS % (AUTO) 3.5 % (0.0-4.0); HEMATOCRIT 32.7 % (36-48); HEMOGLOBIN 10.9 g/dL (12.0-16.0); LYMPHOCYTES % (AUTO) 14.8 % (20.5-51.1); MEAN CORPUSCULAR HEMOGLOBIN 32 pg (27-31); MEAN CORPUSCULAR HGB CONC 34 g/dL (33-37); MONOCYTES # (AUTO) 0.8 K/uL (0.8-1.0); NEUTROPHILS # (AUTO) 4.4 K/uL (1.8-7.7); NEUTROPHILS % (AUTO) 65.7 % (42.2-75.2); PLATELET COUNT (AUTO) 188 K/uL (140-450); RED BLOOD CELL COUNT(AUTO) 3.48 MIL/uL (4.20-5.40); WHITE BLOOD COUNT (AUTO) 6.7 K/uL (4.8-10.8)
--- NOTE | 2017-09-08 07:32 | NUR ---
REPORT GIVEN TO DAY NURSE FOR CONTINUITY OF CARE, PT IN STABLE CONDITION
--- NOTE | 2017-09-08 07:34 | NUR ---
RECEIVED BEDSIDE REPORT FROM OPERATING ROOM MANAGER NURSE. PATIENT IS CURRENTLY SLEEPING AT THIS TIME. OXYMIZER ON AT 2L. NO S/SX OF RESPIRATORY DISTRESS. SKIN IS INTACT. IV ON L FOREARM 22G TKO. BED IN LOW POSITION, CALL LIGHT WITHIN REACH. WILL CONTINUE TO MONITOR PATIENT.
[2017-09-08 08:00] VITALS: BP 159/73
[2017-09-08 08:31] LABS: ANION GAP 13.6 (8-16); CARBON DIOXIDE 27.9 mmol/L (21-32); CHLORIDE 97 mmol/L (98-107); CREATININE 1.9 mg/dL (0.6-1.3); GLUCOSE 69 mg/dL (74-106); POTASSIUM 3.5 mmol/L (3.5-5.1); SODIUM SERUM 135 mmol/L (136-145); UREA NITROGEN, BLOOD 46 mg/dL (7-18)
[2017-09-08] MEDS: FUROSEMIDE 20 MG/2 ML VIAL IVP SCH (09:01)
[2017-09-08] MEDS: CHOLECALCIFEROL 1,000 IU TAB PO SCH (09:01)
[2017-09-08] MEDS: ASPIRIN 81 MG TAB.CHEW PO SCH (09:02)
[2017-09-08] MEDS: CARBIDOPA/LEVODOPA 25/100 MG 1 TAB PO SCH ×3 (09:02→16:03)
[2017-09-08] MEDS: MEMANTINE 10 MG TAB PO SCH (09:02)
[2017-09-08] MEDS: DOCUSATE SODIUM 100 MG GELCAP PO SCH (09:02)
[2017-09-08] MEDS: LACTOBACILLUS RHAMNOSUS GG 1 EACH CAP PO SCH (09:02)
[2017-09-08] MEDS: METOPROLOL 25 MG TAB PO SCH (09:03)
[2017-09-08] MEDS: metFORMIN 500 MG TAB PO SCH (09:03)
[2017-09-08] MEDS: ISOSORBIDE DINITRATE 10 MG TAB PO SCH ×3 (09:04→16:03)
[2017-09-08] MEDS: HYDROCHLOROTHIAZIDE 25 MG TAB PO SCH (09:04)
[2017-09-08] MEDS: CELECOXIB 100 MG CAP PO SCH (09:04)
[2017-09-08] MEDS: GABAPENTIN 300 MG CAP PO SCH (09:04)
--- NOTE | 2017-09-08 09:07 | NUR ---
ADMINISTERED MORNING MEDS. PT TOLERATED WELL. REMOVED OXIMIZER. PATIENT ON ROOM AIR. WILL CONTINUE TO ASSESS O2SAT.
--- NOTE | 2017-09-08 09:47 | NUR ---
ABG RESULTS NO CHANGES MADE.
[2017-09-08] MEDS ORDERED: NACL 0.9% 1,000 ML IV SCH (10:30)
--- NOTE | 2017-09-08 11:40 | NUR ---
P/T IS HERE TO WORK WITH PT.
--- NOTE | 2017-09-08 12:08 | NUR ---
PT SITTING UP IN BED. READY TO EAT. LUNCH TRAY HERE. NO SIGNS OF DISTRESS. NO COMPLAINTS. WILL CONTINUE TO MONITOR PT.
[2017-09-08] MEDS: LEVOFLOXACIN 250 MG/D5 PREMIX 50 ML IV SCH (12:16)
--- NOTE | 2017-09-08 12:40 | NUR ---
I attempted to contact Patient's Son Nahun Bianchi at to discuss and gather Patient's information. He did not responded and these sign writer letterer or painter was unable to leave a MSG due to voice mail been full.
--- NOTE | 2017-09-08 13:04 | NUR ---
PATIENT FINISHING LUNCH AT BEDSIDE. AFTERNOON MEDS GIVEN. PATIENT TOLERATED MEDS WELL. NO S/S OF DISTRESS ON ROOM AIR. WILL CONTINUE TO MONITOR PATIENT. CALL LIGHT WITHIN REACH. BED IN LOW POSITION.
--- NOTE | 2017-09-08 13:54 | NUR ---
FAXED CONCURRENT REVIEW TO [facility] [phone] PHONE TATUM [phone].
--- NOTE | 2017-09-08 14:49 | NUR ---
PER PT PATIENT O2SAT WELL WITH ACTIVITY. ON ROOM AIR O2SAT IS 95-98% WITH ACTIVITY. WILL CONTINUE TO MONITOR PATIENT.
--- NOTE | 2017-09-08 15:05 | NUR ---
RT AT BEDSIDE EDUCATING PATIENT ON HOW TO USE THE IS. WILL CONTINUE TO MONITOR PATIENT.
[2017-09-08 15:11] LABS: ANION GAP 11.9 (8-16); CARBON DIOXIDE 33.5 mmol/L (21-32); CHLORIDE 98 mmol/L (98-107); CREATININE 1.8 mg/dL (0.6-1.3); GLUCOSE 76 mg/dL (74-106); POTASSIUM 4.4 mmol/L (3.5-5.1); SODIUM SERUM 139 mmol/L (136-145); UREA NITROGEN, BLOOD 43 mg/dL (7-18)
--- NOTE | 2017-09-08 15:18 | NUR ---
ASSISTED PT TO THE BATHROOM AND BACK. PT NOW SITTING AT SIDE OF BED, DANGLING FEET. WILL CONTINUE TO MONITOR PT.
--- NOTE | 2017-09-08 15:47 | NUR ---
AT BEDSIDE USING THE VETERINARY POULTRY INSPECTOR PHONE. WILL CONTINUE TO MONITOR.
--- NOTE | 2017-09-08 16:14 | NUR ---
GETTING PATIENT READY FOR DISCHARGE. ADMINISTERED MEDS. PATIENT TOLERATED MEDS WELL. IV IS REMOVED. IV IS INTACT. PATIENTS ID BANDS ARE REMOVED. SCDS REMOVED. PATIENT IS GETTING CHANGED. WILL GET DISCHARGE PAPERWORK READY.
[2017-09-08] MEDS ORDERED: LEVO750T2 PO (16:29)
[2017-09-08] MEDS ORDERED: LACT1.4C PO (16:29)
--- NOTE | 2017-09-08 17:15 | NUR ---
DISCHARGE INSTRUCTIONS GIVEN TO PT AND SON. PT AND SON VERBALIZED UNDERSTANDING. PT IN HER PERSONAL CLOTHES. PERSONAL BELONGINGS IN A BAG. SON AND AT BEDSIDE. WILL GET WHEELCHAIR TO TRANSPORT PT TO THE CAR.
--- NOTE | 2017-09-08 17:24 | NUR ---
PATIENT IS DISCHARGED. WALKED OUTSIDE ON WHEELCHAIR ACCOMPANIED W SON. PATIENT IS IN STABLE CONDITION WITH NO SIGNS OF DISTRESS.
--- NOTE | 2017-09-09 14:15 | NUR ---
CM NOTE DC SUMMARY & MED REC [facility] / FAX# [phone], ATTN: TATUM #[phone]
--- NOTE | 2017-09-10 13:45 | NUR ---
D/C summary faxed to [facility] at [phone]
== END 2017-09-08 17:25 | disposition home or self-care (01) | DRG 291 ==
LOC: MED 09:55 → MTU 13:46
PROVIDERS: ADMIT Family Medicine Sports Medicine; ATTEND Family Medicine Sports Medicine
DX: I11.0 Hypertensive heart disease with heart failure (principal); N17.0 Acute kidney failure with tubular necrosis; J96.21 Acute and chronic respiratory failure with hypoxia; E11.65 Type 2 diabetes mellitus with hyperglycemia; D68.59 Other primary thrombophilia; E11.42 Type 2 diabetes mellitus with diabetic polyneuropathy; E11.51 Type 2 diabetes mellitus with diabetic peripheral angiopathy without gangrene; N39.0 Urinary tract infection, site not specified; I50.43 Acute on chronic combined systolic (congestive) and diastolic (congestive) heart failure; I42.9 Cardiomyopathy, unspecified; G30.9 Alzheimer's disease, unspecified; F02.80 Dementia in other diseases classified elsewhere, unspecified severity, without behavioral disturbance, psychotic disturbance, mood disturbance, and anxiety; D50.9 Iron deficiency anemia, unspecified; M81.0 Age-related osteoporosis without current pathological fracture; M17.0 Bilateral primary osteoarthritis of knee; K21.9 Gastro-esophageal reflux disease without esophagitis; E66.9 Obesity, unspecified; G20 Parkinson's disease; E78.5 Hyperlipidemia, unspecified; Z88.0 Allergy status to penicillin; Z79.2 Long term (current) use of antibiotics; Z79.82 Long term (current) use of aspirin; Z79.899 Other long term (current) drug therapy; Z83.3 Family history of diabetes mellitus; Z80.9 Family history of malignant neoplasm, unspecified; Z82.49 Family history of ischemic heart disease and other diseases of the circulatory system; R80.9 Proteinuria, unspecified; E11.69 Type 2 diabetes mellitus with other specified complication; Z68.30 Body mass index [BMI] 30.0-30.9, adult; Z79.84 Long term (current) use of oral hypoglycemic drugs
CPT/HCPCS: 36415; 36600; 71045; 80048; 80053; 81001; 82150; 82550; 82553; 82803; 82948; 83036; 83605; 83690; 83735; 83880; 84100; 84439; 84443; 84484; 85025; 85610; 85730; 87040; 87081; 87086; 93005; 93308; 93925; 93970; 96361; 96374; 96375; 97110; 97116; 97140; 97530; 99285; J1815; J1940; J1956; J3490; J7030; Q0092

== ENCOUNTER 2017-10-15 12:44 | Emergency (ER) | payer OTHER ==
[~2017-10-15] VITALS: Ht 147.3 cm; Wt 69.6 kg
[~2017-10-15 12:44] MED LIST changes: -ASPI81CT89 PO; -DETLA4 PO; -DOCU-299 PO; -ESOM40EC PO; +LACT1.4C PO; -LACT10CA PO; -MONT10TA35 PO; -OMEP20TC12 PO; -PIOG45TA67 PO; -VAS2.5 PO; -[UNRECOGNIZED DRUG - CODE] PO
[2017-10-15 12:50] VITALS: BP 143/62
--- NOTE | 2017-10-15 12:54 | NUR ---
PT TAKEN BY WHEELCHAIR TO BED 4
--- NOTE | 2017-10-15 13:00 | NUR ---
PT. CAME INTO ED W/ W/ C/O PAIN IN HER R ARM STARTING AT HER R WRIST TO R SHOULDER. 8/10 SHARP PAIN THAT RADIATES FROM R WRIST TO R SHOULDER THAT STARTED LAST NIGHT. RR EVEN AND UNLABORED. DENIES SOB, DENIES CHEST PAIN, SKIN WARM TO TOUCH AND DRY, CAP REFILF LESS THAN 3 SEC BILAT HANDS ,RADIAL PULSE BILAT. 3+ BOUNDING. PT. STATES SHE DID NOT FALL OR HIT HER HAND.
[2017-10-15] MEDS ORDERED: HYDROcodone/APAP 5/325 MG 1 TAB TAB PO ONE (13:25)
--- NOTE | 2017-10-15 13:30 | NUR ---
XRAY AT BEDSIDE.
[2017-10-15 14:33] VITALS: BP 128/62
--- NOTE | 2017-10-15 14:33 | NUR ---
Patient discharged with v/s stable. Written and verbal after care instructions given and explained. Patient alert, oriented and verbalized understanding of instructions. Ambulatory with steady gait. All questions addressed prior to discharge. ID band removed. Patient advised to follow up with PMD. Rx of NORCO 5/325 given. Patient educated on indication of medication including possible reaction and side effects. Opportunity to ask questions provided and answered.
== END 2017-10-15 14:33 | disposition home or self-care (01) ==
LOC: MED 12:44
DX: M25.531 Pain in right wrist (principal); E11.9 Type 2 diabetes mellitus without complications; I10 Essential (primary) hypertension; G30.9 Alzheimer's disease, unspecified; F02.80 Dementia in other diseases classified elsewhere, unspecified severity, without behavioral disturbance, psychotic disturbance, mood disturbance, and anxiety; E78.5 Hyperlipidemia, unspecified; Z88.0 Allergy status to penicillin
CPT/HCPCS: 29125; 73110; 99284; Q0092

== ENCOUNTER 2017-11-10 05:37 | Emergency (ER) | payer OTHER ==
[~2017-11-10] VITALS: Ht 160 cm; Wt 69.2 kg
[2017-11-10 05:45] VITALS: BP 215/107
--- NOTE | 2017-11-10 05:45 | NUR ---
PT W/C ASSISTED TO ER BED 5
--- NOTE | 2017-11-10 05:46 | NUR ---
PATIENT PRESENTS TO ED WITH HEADACHE AND HIGH BLOOD PRESSURE SINCE LAST NIGHT. PT DENIES N/V/D; SKIN IS PINK/WARM/DRY; AAOX4 WITH EVEN AND STEADY GAIT; LUNGS CLEAR BL; HR EVEN AND REGULAR; PT DENIES ANY FEVER, CP, SOB, OR COUGH AT THIS TIME; PATIENT STATES PAIN OF 3/10 AT THIS TIME; VSS; PATIENT POSITIONED FOR COMFORT; HOB ELEVATED; BEDRAILS UP X1; BED DOWN. ER MD MADE AWARE OF PT STATUS.
--- NOTE | 2017-11-10 06:10 | NUR ---
PT TAKEN TO CT
[2017-11-10 06:17] LABS: BASOPHILS % (AUTO) 0.8 % (0.0-2.0); EOSINOPHILS % (AUTO) 0.6 % (0.0-4.0); HEMATOCRIT 37.3 % (36-48); HEMOGLOBIN 12.4 g/dL (12.0-16.0); LYMPHOCYTES # (AUTO) 1.5 K/uL (2.5-16.5); LYMPHOCYTES % (AUTO) 25.4 % (20.5-51.1); MEAN CORPUSCULAR HEMOGLOBIN 32 pg (27-31); MEAN CORPUSCULAR HGB CONC 33 g/dL (33-37); MEAN CORPUSCULAR VOLUME 95.7 fL (80-94); MONOCYTES # (AUTO) 0.6 K/uL (0.8-1.0); MONOCYTES % (AUTO) 9.6 % (1.7-9.3); NEUTROPHILS # (AUTO) 3.8 K/uL (1.8-7.7); NEUTROPHILS % (AUTO) 63.6 % (42.2-75.2); PLATELET COUNT (AUTO) 175 K/uL (140-450)
--- NOTE | 2017-11-10 06:17 | NUR ---
BLOOD WORK DRAWN AND SENT TO LAB
--- NOTE | 2017-11-10 06:30 | NUR ---
GM NICOLE REQUESTED TO CALL FOR CODE BRAIN
--- NOTE | 2017-11-10 06:33 | NUR ---
Dr. Mancilla evaluating patient.
[2017-11-10 06:40] LABS: ANION GAP 15.7 (8-16); CARBON DIOXIDE 23.9 mmol/L (21-32); CHLORIDE 100 mmol/L (98-107); CREATININE 1.2 mg/dL (0.6-1.3); GLUCOSE 246 mg/dL (74-106); POTASSIUM 3.6 mmol/L (3.5-5.1); SODIUM SERUM 136 mmol/L (136-145); UREA NITROGEN, BLOOD 13 mg/dL (7-18)
[2017-11-10 06:47] LABS: ALBUMIN 3.6 g/dL (3.4-5.0); ASPARTATE AMINOTRANSFERASE 28 U/L (15-37); TOTAL BILIRUBIN 0.3 mg/dL (0.0-1.0)
[2017-11-10] MEDS ORDERED: cloNIDine 0.1 MG TAB ONE (06:50)
[2017-11-10] MEDS ORDERED: cloNIDine 0.1 MG TAB PO ONE (06:50)
--- NOTE | 2017-11-10 07:16 | NUR ---
Dr. Ch evaluating patient.
--- NOTE | 2017-11-10 07:20 | NUR ---
RECEIVED PT. REPORT FROM VANI LASSITER . Transfer of care at this time.
[2017-11-10] MEDS ORDERED: fentaNYL 0.05 MG/ML VIAL IVP ONE (07:25)
[2017-11-10] MEDS ORDERED: MORPHINE SULFATE 2 MG/ML SYR IVP ONE (07:25)
--- NOTE | 2017-11-10 07:26 | NUR ---
Dr. Ch re-evaluating patient.
--- NOTE | 2017-11-10 07:40 | NUR ---
PT. IN BED RESTING COMFORTABLY, RR EVEN AND UNLABORED, BED IN LOWEST POSITION, SON AT BEDSIDE. WILL CONTINUE TO MONITOR.
--- NOTE | 2017-11-10 08:07 | NUR ---
REASESSED BP AFTER CLONODINE AND IT IS CURRENTLY 140/63. DR. MARK NOTIFIED. WILL CONTINUE TO MONITOR.
[2017-11-10 08:15] LABS: APPEARANCE,URINE CLEAR (CLEAR); BILIRUBIN,URINE NEGATIVE (NEGATIVE); BLOOD, URINE 1+ (NEGATIVE); COLOR,URINE YELLOW (YELLOW); LEUKOCYTE ESTERASE ,URINE NEGATIVE (NEGATIVE); NITRITE, URINE NEGATIVE (NEGATIVE); UGLUCOSE 2+ (NEGATIVE)
[2017-11-10 09:08] LABS: RBC,URINE 0-5 (RARE) /HPF (0-5); WBC,URINE 0-5 (RARE) /HPF (0-5)
[2017-11-10 09:09] VITALS: BP 151/55
--- NOTE | 2017-11-10 09:09 | NUR ---
Patient discharged with v/s stable. Written and verbal after care instructions given and explained. Patient verbalized understanding. Ambulatory with steady gait. All questions addressed prior to discharge. Advised to follow up with PMD.
== END 2017-11-10 09:09 | disposition home or self-care (01) ==
LOC: MED 05:37
DX: I10 Essential (primary) hypertension (principal); E11.9 Type 2 diabetes mellitus without complications; G30.9 Alzheimer's disease, unspecified; F02.80 Dementia in other diseases classified elsewhere, unspecified severity, without behavioral disturbance, psychotic disturbance, mood disturbance, and anxiety; Z88.0 Allergy status to penicillin; Z79.899 Other long term (current) drug therapy
CPT/HCPCS: 36415; 70450; 71045; 80053; 81001; 83880; 84484; 85025; 93005; 96374; 99285; J3010

== ENCOUNTER 2017-11-14 23:33 | Inpatient (IN) | payer OTHER ==
[~2017-11-14] VITALS: Ht 152.4 cm; Wt 65.8 kg
[2017-11-14 23:45] VITALS: BP 199/84
--- NOTE | 2017-11-14 23:51 | NUR ---
TO BED # 2 VIA W/C
--- NOTE | 2017-11-15 | NUR ---
PT BIB FAMILY C/O HEADACHE AND HIGH BLOOD PRESSURE. PT WAS HAVING PAIN IN BL LEGS AND HEADACHE, FOUND TO HAVE HIGH BLOOD PRESSURE ON TRIAGE ASSESMENT. PER FAMILY PT TOOK RX TODAY FOR HTN. PMH HTNCHARLES
[2017-11-15] MEDS ORDERED: hydrALAZINE 20 MG/ML VIAL IM ONE (00:50)
[2017-11-15] MEDS ORDERED: ACETAMINOPHEN EXTRA STRENGTH 500 MG TAB PO ONE (00:50)
[2017-11-15 01:13] LABS: BASOPHILS % (AUTO) 0.6 % (0.0-2.0); EOSINOPHILS # (AUTO) 0.1 K/uL (0-0.4); EOSINOPHILS % (AUTO) 2.1 % (0.0-4.0); HEMATOCRIT 35.4 % (36-48); HEMOGLOBIN 11.8 g/dL (12.0-16.0); LYMPHOCYTES % (AUTO) 37.9 % (20.5-51.1); MEAN CORPUSCULAR HEMOGLOBIN 32 pg (27-31); MEAN CORPUSCULAR HGB CONC 33 g/dL (33-37); MEAN CORPUSCULAR VOLUME 95.9 fL (80-94); MONOCYTES # (AUTO) 0.5 K/uL (0.8-1.0); MONOCYTES % (AUTO) 8.8 % (1.7-9.3); NEUTROPHILS # (AUTO) 2.7 K/uL (1.8-7.7); NEUTROPHILS % (AUTO) 50.6 % (42.2-75.2); PLATELET COUNT (AUTO) 186 K/uL (140-450); RED BLOOD CELL COUNT(AUTO) 3.69 MIL/uL (4.20-5.40); RED CELL DISTRIBUTION WIDTH 14.3 % (11.6-13.7); WHITE BLOOD COUNT (AUTO) 5.3 K/uL (4.8-10.8)
[2017-11-15] MEDS ORDERED: AZITHROMYCIN 500 MG in DEXTROSE 5% 250 ML IV ONE (01:20)
[2017-11-15] MEDS ORDERED: FUROSEMIDE 40 MG/4 ML VIAL IVP ONE (01:20)
[2017-11-15 01:22] LABS: ANION GAP 12.1 (8-16); CARBON DIOXIDE 25.4 mmol/L (21-32); CHLORIDE 102 mmol/L (98-107); CREATININE 1.1 mg/dL (0.6-1.3); GLUCOSE 152 mg/dL (74-106); POTASSIUM 3.5 mmol/L (3.5-5.1); SODIUM SERUM 136 mmol/L (136-145); UREA NITROGEN, BLOOD 17 mg/dL (7-18)
[2017-11-15 01:28] LABS: ALBUMIN 3.3 g/dL (3.4-5.0); ASPARTATE AMINOTRANSFERASE 25 U/L (15-37); TOTAL BILIRUBIN 0.2 mg/dL (0.0-1.0)
[2017-11-15] MEDS ORDERED: AZITHROMYCIN 500 MG INJ VIAL IV ONE (01:40)
--- NOTE | 2017-11-15 02:00 | NUR ---
PT LAYING IN BED, VSS, ER MADE AWARE OF B/P .
[2017-11-15 02:13] LABS: APPEARANCE,URINE SL CLOUDY (CLEAR); BILIRUBIN,URINE NEGATIVE (NEGATIVE); BLOOD, URINE NEGATIVE (NEGATIVE); COLOR,URINE YELLOW (YELLOW); LEUKOCYTE ESTERASE ,URINE TRACE (NEGATIVE); NITRITE, URINE POSITIVE (NEGATIVE); UGLUCOSE NEGATIVE (NEGATIVE)
[2017-11-15 02:56] LABS: RBC,URINE 0-5 (RARE) /HPF (0-5)
[2017-11-15] MEDS ORDERED: ALBUTEROL 0.083% 2.5 MG/3 ML NEBU INH PRN (03:45)
[2017-11-15] MEDS ORDERED: LORazepam 2 MG/ML VIAL IVP PRN (03:45)
[2017-11-15] MEDS ORDERED: ONDANSETRON 4 MG/2 ML VIAL IVP PRN (03:45)
[2017-11-15] MEDS ORDERED: HYDROcodone/APAP 5/325 MG 1 TAB TAB PO PRN ×2 (03:45)
[2017-11-15] MEDS ORDERED: DEXTROSE 50% 50 ML SYR IVP PRN (03:55)
--- NOTE | 2017-11-15 04:00 | NUR ---
Patient will be admitted to care of DR. GARCIA . Admited to JOSE. Will go to room 124-B. Belongings list completed. Report to AYDEN.
--- NOTE | 2017-11-15 04:21 | NUR ---
RECEIVED FROM ER PER LOTUS AWAKE AND ALERT. NO SOB. ACCOMPANIED BY SON WHO TAKES CARE OF MOTHER AND SPEAKS RWANDAN WELL. AMBULATES . ROM X 4. CLEAR SPEECH. SPEAKS ONLY AZERBAIJANI. DX. OF UTI AND CHF EXACERBATION. IVF SITE TO LEFT HAND #22. DX. OF CHF EXACERBATION AND UTI. CARE PLANS FOR THE NIGHT DISCUSSED WITH THEM AND CALL LIGHT WITH IN REACH. AFEBRILE. PT. ASSISTED TO RESTROOM TO URINATE. NOTED ABLE TO STAND UP AND WALK. STANDBY ASSIST RT FALL RISK. BED ALARM ON.
[2017-11-15] MEDS ORDERED: LEVOFLOXACIN 500 MG/D5W PREMIX 100 ML IV SCH (05:00)
[2017-11-15] MEDS ORDERED: hydrALAZINE 10 MG TAB PO SCH (05:00)
[2017-11-15 05:06] VITALS: BP 202/90
[2017-11-15] MEDS: hydrALAZINE 20 MG/ML VIAL IVP PRN ×2 (05:24→06:27)
--- NOTE | 2017-11-15 05:26 | NUR ---
HYDRALAZINE 10 MG IVP ADMINISTERED RT SBP 202. ASSISTED TO BED AHN AGAIN AT THIS TIME. ADMISSION NOTES COMPLETED WITH HELP FROM [employer] # [id number]. FOUND OUT THAT MOTHER UNDERSTANDS AND SPEAKS A LITTLE BIT OF CYMRO. P.O. HYDRALAZINE FOR 0500 NOT ADMINISTERED RT MEDICATED WITH IVP OF HYDRALAZINE INSTEAD.
[2017-11-15] MEDS: BLOOD GLUCOSE MONITORING 1 DEV DEV FS SCH ×4 (06:20→21:00)
[2017-11-15] MEDS: INSULIN LISPRO SLIDING SCALE 100 UNITS/ML VIAL SUBQ PRN ×4 (06:22→20:15)
--- NOTE | 2017-11-15 06:57 | NUR ---
PT. COMPLAINED OF HEADACHE. REQUESTED FOR ICE PACK FOR HEAD. PROVIDED WITH ONE. ABLE TO VERBALIZE NEEDS THRU SON AT BEDSIDE.
--- NOTE | 2017-11-15 07:36 | NUR ---
ENDORSED TO THE NEXT RN FOR CONTINUITY OF CARE. SLEEPING. SON STILL HERE AT BEDSIDE .NO COMPLAINTS DONE.
--- NOTE | 2017-11-15 07:50 | NUR ---
PATIENT AWAKE, ALERT. RESPIRATION EVEN, UNLABOR ON ROOM AIR. SKIN DRY AND WARM. IV PATENT AND INTACT. COMPLAINED OF HEADACHE 5/10, BP WAS ELEVATED, WILL MEDICATE PER ORDER. DENIED SOB AT THIS TIME. PLAN OF CARE WAS DISCUSSED WITH PATIENT AND FAMILY. BED AT LOW POSITION, SIDE RAILS UP. CALL LIGHT WITHIN REACH
[2017-11-15 08:00] VITALS: BP 187/85
[2017-11-15] MEDS ORDERED: METOPROLOL SUCCINATE 50 MG TABER PO SCH (09:00)
[2017-11-15] MEDS ORDERED: PIOGLITAZONE 30 MG TAB PO SCH (09:00)
[2017-11-15] MEDS ORDERED: NON-FORMULARY ITEM (L. Acidophilus/L.bulgaricus (Lactinex Chewable Tablet) 1.4 MG) PO SCH (09:00)
[2017-11-15] MEDS: GABAPENTIN 300 MG CAP PO SCH ×2 (09:07→20:06)
[2017-11-15] MEDS: FERROUS SULFATE 325 MG TABEC PO SCH (09:07)
[2017-11-15] MEDS: MEMANTINE 10 MG TAB PO SCH (09:07)
[2017-11-15] MEDS: ACETAMINOPHEN 325 MG TAB PO PRN ×2 (09:07→20:22)
[2017-11-15] MEDS: CARBIDOPA/LEVODOPA 25/100 MG 1 TAB PO SCH ×3 (09:07→17:10)
[2017-11-15] MEDS: ASPIRIN 81 MG TAB.CHEW PO SCH (09:08)
[2017-11-15] MEDS: FUROSEMIDE 40 MG/4 ML VIAL IVP SCH (09:08)
[2017-11-15] MEDS: glipiZIDE 5 MG TAB PO SCH ×2 (09:09→20:06)
[2017-11-15] MEDS: ENOXAPARIN 30 MG/0.3 ML SYR SUBQ SCH (09:18)
--- NOTE | 2017-11-15 09:34 | NUR ---
SPOKE WITH TATUM FROM [employer]. SHE SAID REVIEWS JUST GO TO HER. FAXED INITIAL REVIEW TO [phone] PHONE TATUM [phone]
--- NOTE | 2017-11-15 10:29 | NUR ---
PATIENT HAS BEEN SCREENED AND CATEGORIZED MODERATE NUTRITION RISK. PATIENT WILL BE SEEN WITHIN 3-5 DAYS OF ADMISSION. 11/17/17 11/19/[address]
[2017-11-15] MEDS ORDERED: NIFEdipine 30 MG TABER PO SCH (11:27)
[2017-11-15] MEDS ORDERED: hydrALAZINE 25 MG TAB PO PRN (11:35)
[2017-11-15 12:00] VITALS: BP 168/58
--- NOTE | 2017-11-15 12:00 | NUR ---
PATIENT AWAKE, ALERT. RESPIRATION EVEN, UNLABOR ON ROOM AIR. VS IS STABLE. NO DISTRESS NOTED AT THIS TIME. MEDS WERE EXPLAINED TO THE PATIENT AND SON. CALL LIGHT WITHIN REACH
--- NOTE | 2017-11-15 14:15 | NUR ---
PATIENT IS SLEEPING COMFORTABLY. RESPIRATION EVEN, UNLABOR NO ROOM AIR. NO DISTRESS NOTED AT THIS TIME
[2017-11-15 16:00] VITALS: BP 122/57
--- NOTE | 2017-11-15 16:30 | NUR ---
PATIENT WAS SLEEPING COMFORTABLY. RESPIRATION EVEN, UNLABOR ON ROOM AIR. VS IS STABLE. DENIED HEADACHE, SOB AT THIS TIME. NO DISTRESS NOTED. CALL LIGHT WITHIN REACH
--- NOTE | 2017-11-15 18:14 | NUR ---
PATIENT AWAKE, ALERT, EATING DINNER COMFORTABLY. RESPIRATION EVEN, UNLABOR ON ROOM AIR. IV PATENT AND INTACT. NO DISTRESS NOTED AT THIS TIME
--- NOTE | 2017-11-15 19:22 | NUR ---
ENDORSEMENT GIVEN TO THE MOTORIZED SQUAD LIEUTENANT NURSE. PATIENT IS STABLE AT THIS TIME.
--- NOTE | 2017-11-15 19:30 | NUR ---
RECEIVED PT REPORT FROM DAYSHIFT NURSE AT BEDSIDE FOR CONTINUITY OF CARE. PT AAOX3. IV NOTED L HAND 22G SALINE LOCK. PT HAS NO SOB NO S/S OF DISTRESS ON ROOM AIR. BED LOWERED CALL LIGHT WITHIN REACH WILL CONTINUE TO MONITOR.
[2017-11-15 20:00] VITALS: BP 120/56
[2017-11-15] MEDS: METOPROLOL 25 MG TAB PO SCH (20:07)
[2017-11-15] MEDS ORDERED: SIMVASTATIN 10 MG TAB PO SCH (21:00)
[2017-11-16] VITALS: BP 99/44
[2017-11-16 04:00] VITALS: BP 125/71
[2017-11-16] MEDS ORDERED: LEVOFLOXACIN 250 MG/D5 PREMIX 50 ML IV SCH (05:00)
[2017-11-16 06:38] LABS: BASOPHILS % (AUTO) 0.4 % (0.0-2.0); EOSINOPHILS # (AUTO) 0.1 K/uL (0-0.4); EOSINOPHILS % (AUTO) 2.1 % (0.0-4.0); HEMATOCRIT 35.9 % (36-48); LYMPHOCYTES # (AUTO) 1.9 K/uL (2.5-16.5); LYMPHOCYTES % (AUTO) 31.6 % (20.5-51.1); MEAN CORPUSCULAR HEMOGLOBIN 32 pg (27-31); MEAN CORPUSCULAR HGB CONC 33 g/dL (33-37); MEAN CORPUSCULAR VOLUME 95.4 fL (80-94); MONOCYTES # (AUTO) 0.6 K/uL (0.8-1.0); MONOCYTES % (AUTO) 9.4 % (1.7-9.3); NEUTROPHILS # (AUTO) 3.3 K/uL (1.8-7.7); NEUTROPHILS % (AUTO) 56.5 % (42.2-75.2); PLATELET COUNT (AUTO) 203 K/uL (140-450); RED BLOOD CELL COUNT(AUTO) 3.77 MIL/uL (4.20-5.40); RED CELL DISTRIBUTION WIDTH 13.9 % (11.6-13.7); WHITE BLOOD COUNT (AUTO) 5.9 K/uL (4.8-10.8)
[2017-11-16] MEDS: BLOOD GLUCOSE MONITORING 1 DEV DEV FS SCH ×3 (06:39→16:55)
[2017-11-16 06:47] LABS: ALBUMIN 3.2 g/dL (3.4-5.0); ASPARTATE AMINOTRANSFERASE 29 U/L (15-37); CARBON DIOXIDE 27.2 mmol/L (21-32); CHLORIDE 92 mmol/L (98-107); CREATININE 1.8 mg/dL (0.6-1.3); GLUCOSE 113 mg/dL (74-106); MAGNESIUM 1.7 mg/dL (1.8-2.4); SODIUM SERUM 129 mmol/L (136-145); TOTAL BILIRUBIN 0.3 mg/dL (0.0-1.0); UREA NITROGEN, BLOOD 28 mg/dL (7-18)
[2017-11-16 06:49] LABS: ANION GAP 12.8 (8-16)
--- NOTE | 2017-11-16 07:28 | NUR ---
GAVE REPORT TO DAYSHIFT NURSE AT BEDSIDE FOR CONTINUITY OF CARE.
--- NOTE | 2017-11-16 07:40 | NUR ---
received pt from retail shift leader nurse, pt cherellesep in bed, son at bedside, no signs of distress, updated board, explained plan of care to pts son, call light within reach, iv on left hand patent and no signs of redness.
[2017-11-16 08:00] VITALS: BP 160/71
[2017-11-16] MEDS: FUROSEMIDE 40 MG/4 ML VIAL IVP SCH (08:53)
[2017-11-16] MEDS: CARBIDOPA/LEVODOPA 25/100 MG 1 TAB PO SCH ×3 (08:54→16:58)
[2017-11-16] MEDS: METOPROLOL 25 MG TAB PO SCH (08:54)
[2017-11-16] MEDS: GABAPENTIN 300 MG CAP PO SCH (08:55)
[2017-11-16] MEDS: ASPIRIN 81 MG TAB.CHEW PO SCH (08:55)
[2017-11-16] MEDS: glipiZIDE 5 MG TAB PO SCH (08:55)
[2017-11-16] MEDS: MEMANTINE 10 MG TAB PO SCH (08:56)
[2017-11-16] MEDS: FERROUS SULFATE 325 MG TABEC PO SCH (08:56)
[2017-11-16] MEDS: ACETAMINOPHEN 325 MG TAB PO PRN (08:56)
[2017-11-16] MEDS ORDERED: NIFEdipine 30 MG TABER PO SCH (09:00)
[2017-11-16] MEDS ORDERED: LACTOBACILLUS RHAMNOSUS GG 1 EACH CAP PO SCH (09:00)
[2017-11-16] MEDS: ENOXAPARIN 30 MG/0.3 ML SYR SUBQ SCH (09:09)
--- NOTE | 2017-11-16 09:30 | NUR ---
EDUCATED ABOUT DUE MEDICATIONS, SON AT BEDSIDE QUESTIONS ANSWERED, CALL LIGHT WITHIN REACH.
[2017-11-16] MEDS ORDERED: LEVO500T98 PO (09:35)
[2017-11-16] MEDS ORDERED: ADA30 PO (09:35)
[2017-11-16] MEDS ORDERED: METO25TE2 PO (09:35)
[2017-11-16] MEDS ORDERED: 1/2 NS IV SCH (09:40)
[2017-11-16] MEDS ORDERED: POTASSIUM CHL IV SCH (09:40)
[2017-11-16] MEDS ORDERED: KCL 20 MEQ/WATER INJ PREMIX 100 ML IV SCH (10:00)
[2017-11-16] MEDS ORDERED: MAG SULF 2000 MG/WATER PREMIX 50 ML IV SCH (11:00)
--- NOTE | 2017-11-16 11:30 | NUR ---
PT RESTING IN BED, CALL LIGHT WITHIN REACH, WILL GIVE INSULIN COVERAGE WILL BE GIVEN.
[2017-11-16 12:00] VITALS: BP 108/60
[2017-11-16] MEDS: INSULIN LISPRO SLIDING SCALE 100 UNITS/ML VIAL SUBQ PRN ×2 (12:25→16:52)
--- NOTE | 2017-11-16 13:35 | NUR ---
PT RESTING IN BED, WILL GIVE DUE MEDICATIONS. NO SIGNS OF DISTRESS OR PAIN, CALL LIGHT WITHIN REACH. BED IN LOWEST POSITION, AND WILL CONTINUE FREQ CHECKS.
[2017-11-16] MEDS ORDERED: POTASSIUM CHLORIDE 20 MEQ, LIDOCAINE 1% 25 MG in NACL 0.9% 250 ML IV SCH (14:00)
--- NOTE | 2017-11-16 15:33 | NUR ---
PHYSICAL THERAPY CO-SIGN The Physical Therapy Progress Notes documented by Airport Shuttle Driver have been reviewed. I CONCUR W/SAMPLE DISPLAY PREPARER NOTE; Pt IS SHOWING PROGRESS WITH POC, CONT PER TX PLAN Reviewed/Co-Signed by: Eli Grider, PT Documentation Done by: JO KENNEDY PTA Addendum: 11/16/17 at 1534 by Eli Grider PT Amended: Links added.
[2017-11-16 16:00] VITALS: BP 135/66
--- NOTE | 2017-11-16 16:48 | NUR ---
FAXED CONCURRENT REVIEW TO [facility] [phone] PHONE TATUM [phone]. RECEIVED ORDER EARLIER ABOUT FOLLOW UP WITH HIGH RISK CLINIC FROM [facility]. I CALLED [facility] AND THEY CAN NOT TAKE THIS PATIENT SINCE SHE IS [facility]LY [facility], [facility]. PRIMARY. I INFORMED DR. GARCIA.
--- NOTE | 2017-11-16 17:11 | NUR ---
WAITING FOR SON TO ARRIVE TO TAKE PT HOME. D/C PAPERWORK READY.
--- NOTE | 2017-11-16 17:54 | NUR ---
IV D/C, SIT CLEAN AND INTACT, NO REPORTED PAIN, CATH INTACT, NEW MEDICATIONS EXPLAINED AND QUESTIONS ANSWERED. PT BRACELETS CUT, AND TELE MONITOR TAKEN OFF. USED TO TRANSPORT PT TO PRIVATE VEHICLE. PT STABLE UPON D/C.
== END 2017-11-16 18:00 | disposition home or self-care (01) | DRG 689 ==
LOC: MED 23:33 → MTU 11-15 03:51
PROVIDERS: ADMIT Hospitalist; ATTEND Hospitalist
DX: N39.0 Urinary tract infection, site not specified (principal); I50.31 Acute diastolic (congestive) heart failure; G20 Parkinson's disease; E11.9 Type 2 diabetes mellitus without complications; E66.01 Morbid (severe) obesity due to excess calories; F02.80 Dementia in other diseases classified elsewhere, unspecified severity, without behavioral disturbance, psychotic disturbance, mood disturbance, and anxiety; D50.9 Iron deficiency anemia, unspecified; I16.0 Hypertensive urgency; K21.9 Gastro-esophageal reflux disease without esophagitis; M85.80 Other specified disorders of bone density and structure, unspecified site; Z88.0 Allergy status to penicillin; Z68.28 Body mass index [BMI] 28.0-28.9, adult; I11.0 Hypertensive heart disease with heart failure
CPT/HCPCS: 36415; 71045; 80053; 81001; 82948; 83605; 83735; 83880; 85025; 87040; 87081; 87086; 87186; 93976; 96372; 96374; 97110; 97116; 97140; 97530; 99285; J0360; J0456; J1650; J1815; J1940; J1956; J2001; J3475; J3480; J7030; J7060; Q0092

== ENCOUNTER 2021-08-21 19:05 | Inpatient (IN) | payer OTHER, SELFPAY ==
[~2021-08-21] VITALS: Ht 154.9 cm; Wt 62.1 kg
[~2021-08-21 19:05] MED LIST changes: -ACT30 PO; -ALEN10TA PO; -ASPI81CT95 PO; -CARB1TAB8 PO; -CELE200C PO; +CLON0.1T42 PO; +FAMO20TA13 PO; -GABA300C PO; -GLIP5TAB4 PO; -HYDR-1102 PO; +INSU100S22 SUBQ; -LACT1.4C PO; -LEVO750T2 PO; -MEMA10TA PO; -METF500T4 PO; -METO25TE2 PO; +MULT-1469 PO; +NIFE60TE79 PO; -ORE25 PO; -SIMV10TA6 PO; +SIMV20TA1 PO; -SITA100T8 PO; +TIM.5OS OP; +TRA200 PO; +TRAM50TA3 PO; -VITD1000 PO
--- NOTE | 2021-08-21 19:05 | NUR ---
1900 BIBA TO ER BED3
--- NOTE | 2021-08-21 19:08 | NUR ---
Dr. Calero at bedside to exam patient.
[2021-08-21] MEDS ORDERED: NITROGLYCERIN 2% 1 GM PKT TP ONE ×2 (19:10→19:25)
[2021-08-21 19:12] VITALS: BP 220/120
[2021-08-21 19:15] VITALS: BP 230/120
[2021-08-21] MEDS ORDERED: MAG SULF 2000 MG/WATER PREMIX 50 ML IV ONE (19:15)
[2021-08-21] MEDS ORDERED: methylPREDNISolone SS 125 MG/2 ML VIAL IVP ONE (19:15)
[2021-08-21] MEDS ORDERED: FUROSEMIDE 100 MG/10 ML VIAL IVP ONE (19:15)
[2021-08-21] MEDS ORDERED: ALBUTEROL 0.083% 2.5 MG/3 ML NEBU INH ONE (19:15)
[2021-08-21] MEDS ORDERED: IPRATROPIUM 0.02% 0.5 MG/2.5 ML NEBU INH ONE (19:15)
--- NOTE | 2021-08-21 19:17 | NUR ---
RT at bedside for breathing treatment.
--- NOTE | 2021-08-21 19:22 | NUR ---
DIRECTOR MACHINE AT PT BEDSIDE.
[2021-08-21] MEDS ORDERED: DOCU-299 PO (19:23)
--- NOTE | 2021-08-21 19:23 | NUR ---
Reconcile Medications reviewed.
--- NOTE | 2021-08-21 19:25 | NUR ---
86 Y/O FEMALE C/O SOB [id number]. PER EMT PT WAS 78% ON RA, BASELINE OF 4LNC USUALLY. PT GIVEN ALBUTEROL BREATHING TX EN ROUTE SPO2 87%. PT PLACED ON CPAP 10 EN ROUTE PER FIRE. ON ARRIVAL PT 77% SPO2 ON RA PLACED BACK ON CPAP. LUNG SOUNDS ARE AUSCULTATED WITH BILATERAL WHEEZING DIMINISHED AT BASES, PITTING EDEMA +3 BLE. PMH: HTN, DM, CKD, ASTHMA, COPD, CHF ALLERGIES: PCN
--- NOTE | 2021-08-21 19:30 | NUR ---
GAVE REPORT TO VANI MORALES. TRANSFER OF CARE AT THIS TIME.
[2021-08-21 19:49] LABS: ALBUMIN 2.9 g/dL (3.4-5.0); ANION GAP 14.6 (8-16); ASPARTATE AMINOTRANSFERASE 51 U/L (15-37); CARBON DIOXIDE 27.4 mmol/L (21-32); CHLORIDE 98 mmol/L (98-107); CREATININE 3.9 mg/dL (0.6-1.3); GLUCOSE 182 mg/dL (74-106); SODIUM SERUM 135 mmol/L (136-145); TOTAL BILIRUBIN 0.4 mg/dL (0.0-1.0)
--- NOTE | 2021-08-21 19:52 | NUR ---
Blood for ABG drawn from left arm per RT. Patient tolerated fair.
[2021-08-21 19:53] LABS: UREA NITROGEN, BLOOD 64 mg/dL (7-18)
--- NOTE | 2021-08-21 20:24 | NUR ---
Called and spoke with patient's family (her son) to update patient's status.
--- NOTE | 2021-08-21 21:30 | NUR ---
COVID-19 (rapid) swabs collected and sent to lab
--- NOTE | 2021-08-21 22:04 | NUR ---
Placed Purewick , change a gown and re-position patient,
[2021-08-21 22:35] VITALS: BP 171/75
[2021-08-21] MEDS ORDERED: ALBUTEROL SULFATE/IPRATROPIU 3 ML SOL IH ONE (22:50)
--- NOTE | 2021-08-21 23:07 | NUR ---
ASSESSED PT AT BEDSIDE. PLACE PT ON 5L NASAL CANNULA. PT DID NOT TOLERATE WELL. NOTICED INCREASED WORK OF BREATHING. PT WAS PLACED BACK ON BIPAP. WILL CONTINUE TO MONITOR.
[2021-08-21] MEDS ORDERED: HYDROcodone/APAP 5/325 MG 1 TAB TAB PO PRN (23:15)
[2021-08-21] MEDS ORDERED: KCL 20 MEQ/WATER INJ PREMIX 200 ML IV PRN (23:15)
[2021-08-21] MEDS ORDERED: MAGNESIUM OXIDE 400 MG TAB PO PRN (23:15)
[2021-08-21] MEDS ORDERED: MAG SULF 2000 MG/WATER PREMIX 50 ML IV PRN (23:15)
[2021-08-21] MEDS ORDERED: ONDANSETRON 4 MG/2 ML VIAL IVP PRN (23:15)
[2021-08-21] MEDS ORDERED: ACETAMINOPHEN 325 MG TAB PO PRN (23:15)
[2021-08-21] MEDS ORDERED: POTASSIUM CHLORIDE 10 MEQ TABER PO PRN (23:15)
--- NOTE | 2021-08-21 23:47 | NUR ---
Patient will be admitted to care of Dr. Jean Baptiste. Admited to TELE. Will go to room 106A. Belongings list completed. Report to VANI Morales.
[2021-08-22] VITALS (7 sets, daily range): BP systolic 113–170; BP diastolic 58–86
--- NOTE | 2021-08-22 00:10 | NUR ---
RECEIVED REPORT FROM [facility] ER NURSE OVER THE PHONE, PT BROUGHT UP BY FIORDALIZA, SHE IS AOX3-4 PROBABLY TURKMEN SPEAKING, CAN COMMUNICATE BASIC NEEDS IN ESTONIAN SHE IS ON THE CPAP 02 IS 40% RR 14. PT WAS TURNED AND REPOSITIONED IN BED, SKIN INTACT, SHE HAS A NITRO PATCH ON. IV SITE IS 20 GUAGE RIGHT AC. PT ALSO HAS PURE-WICK DUE TO PT HAVING HAD LASIX IN RE IT WA ATTACHED TO LOW INTERMITTENT SUCTION. ALL FALLS PRECAUTIONS IN PLACE. ADMISSION V/S FOLLOWS; T 98.2 P 76 R 20 B/P 170/58. PT ALSO HAS C/O OF PAIN . WILL GIVEN PAIN MEDICATION PRN AND SPEAK WITH MD FOR A PRN HTN MEDICATION.
[2021-08-22] MEDS ORDERED: hydrALAZINE 25 MG TAB PO PRN (00:55)
--- NOTE | 2021-08-22 01:03 | NUR ---
PT ADMISSION B/P 170/58, IT WAS RETAKEN AND IT WAS 170/58. CONTACTED MD ALBA THE CLAIM REP MD, RECEIVED ORDER FOR IVP HYDRALAZINE FOR SBP OVER 170. HYDRALAZINE FOR IVP WAS OUT OF STOCK CALLED BACK MD AGAIN RECEIVED PO ORDER FOR HYDRALAZINE 50 MG Q 6HR FOR SBP OVER 160 RETAKE OF B/P IS 169/88. PT WAS GIVEN PO NORCO FOR C/O OF PAIN WELL 50MG HYDRALAZINE PO FOR SBP OVER 170. LAST B/P WAS 172/86, WILL CONTINUE TO MONITOR B/P. ALLORDERED PRECAUTIONS IN PLACE.
[2021-08-22 03:13] LABS: BASOPHILS % (AUTO) 0.5 % (0.0-2.0); HEMATOCRIT 23.6 % (36-48); HEMOGLOBIN 7.9 g/dL (12.0-16.0); LYMPHOCYTES # (AUTO) 0.5 K/uL (2.5-16.5); LYMPHOCYTES % (AUTO) 5.3 % (20.5-51.1); MEAN CORPUSCULAR HEMOGLOBIN 32 pg (27-31); MEAN CORPUSCULAR HGB CONC 33 g/dL (33-37); MONOCYTES # (AUTO) 0.1 K/uL (0.8-1.0); MONOCYTES % (AUTO) 0.9 % (1.7-9.3); NEUTROPHILS # (AUTO) 8.8 K/uL (1.8-7.7); NEUTROPHILS % (AUTO) 93.3 % (42.2-75.2); PLATELET COUNT (AUTO) 239 K/uL (140-450); RED BLOOD CELL COUNT(AUTO) 2.49 MIL/uL (4.20-5.40); RED CELL DISTRIBUTION WIDTH 12.7 % (11.6-13.7); WHITE BLOOD COUNT (AUTO) 9.4 K/uL (4.8-10.8)
--- NOTE | 2021-08-22 03:30 | NUR ---
TROPONIN LEVEL DRAWN NEW LEVEL HAD CRITICAL OF 0.962 LEVEL VIAL GRINDER MD PAGED. NEXT DRAW IS DUE AT 11 AM.
[2021-08-22 03:31] LABS: ALBUMIN 2.6 g/dL (3.4-5.0); ANION GAP 14.6 (8-16); ASPARTATE AMINOTRANSFERASE 28 U/L (15-37); CARBON DIOXIDE 26.8 mmol/L (21-32); CHLORIDE 100 mmol/L (98-107); GLUCOSE 192 mg/dL (74-106); POTASSIUM 4.4 mmol/L (3.5-5.1); SODIUM SERUM 137 mmol/L (136-145); TOTAL BILIRUBIN 0.4 mg/dL (0.0-1.0)
[2021-08-22 03:32] LABS: CREATININE 4.2 mg/dL (0.6-1.3); UREA NITROGEN, BLOOD 67 mg/dL (7-18)
--- NOTE | 2021-08-22 04:30 | NUR ---
NEW ORDER NOTED KERI EKG, RT MADE AWARE.
--- NOTE | 2021-08-22 05:00 | NUR ---
EKG DONE RESULTS ARE NSR
--- NOTE | 2021-08-22 05:34 | NUR ---
PT TURNED, CHANGED AND REPOSITIONED IN BED, RETAKE OF B/P IS 159/84. ALL ORDERED PRECAUTIONS IN PLACE . PT HAS NO S/S OF PAIN OR DISTRESS NOTED.
--- NOTE | 2021-08-22 06:13 | NUR ---
PT IN BED NO S/S OF DISTRESS NOTED, RETAKE OF B/P IS 153/78. ALL ORDERED PRECAUTIONS IN PLACE.
[2021-08-22] MEDS ORDERED: DEXTROSE 50% 50 ML SYR IVP PRN (06:25)
[2021-08-22] MEDS: BLOOD GLUCOSE MONITORING 1 DEV DEV FS SCH ×4 (06:37→21:31)
[2021-08-22] MEDS: INSULIN LISPRO SLIDING SCALE 100 UNITS/ML VIAL SUBQ PRN ×3 (06:37→17:19)
--- NOTE | 2021-08-22 06:43 | NUR ---
FINGERSTICK IS 184, SHE WAS GIVEN 2 UNITS PER S/S.
--- NOTE | 2021-08-22 07:50 | NUR ---
RECEIVED REPORT FROM OUTGOING RN FOR CONTINUITY OF CARE, PT LYING IN BED RESTING WITH EYES CLOSED. SHE IS ON BIPAP PULSE OX 98% NO RESPIRATORY DISTRESS OBSERVED AT THIS TIME . ALL UNIVERSAL FALLS PRECAUTIONS IN PLACE.
--- NOTE | 2021-08-22 08:15 | NUR ---
Kirk FELIX RCP AT BEDSIDE REMOVED PATIENT FROM BIPAP TO MASK PLACED ON SUPPLEMENTAL OXYGEN AT 3 LPM VIA NC
[2021-08-22] MEDS: DOCUSATE SODIUM 100 MG GELCAP PO SCH (08:36)
[2021-08-22] MEDS: FUROSEMIDE 40 MG/4 ML VIAL IVP SCH ×2 (08:37→21:49)
[2021-08-22] MEDS ORDERED: CLONIDINE HYDROCHLORIDE 0.1 MG TAB PO PRN (09:05)
--- NOTE | 2021-08-22 09:16 | NUR ---
PATIENT HAS BEEN SCREENED AND CATEGORIZED MODERATE NUTRITION RISK. PATIENT WILL BE SEEN WITHIN 3-5 DAYS OF ADMISSION. [address]
[2021-08-22] MEDS: NIFEdipine 60 MG TABER PO SCH (09:58)
[2021-08-22] MEDS: LABETALOL 200 MG TAB PO SCH ×2 (09:59→21:45)
--- NOTE | 2021-08-22 10:00 | NUR ---
INDWELLING WILSON CATH INSERTED PER MD ORDERS, SELENA AWARE, PATIENT TOLERATED PROCEDURE WELL, 100ML CLEAR YELLOW URINE IN COLLECTION BAG
--- NOTE | 2021-08-22 12:00 | NUR ---
PATIENTS BLOOD SUGAR 155, 2 UNITS OF INSULIN ADMINISTERED PER EMAR
--- NOTE | 2021-08-22 12:39 | NUR ---
DC PLANN[age] YRS OLD FEMALE PATIENT WAS ADMITTED FROM HOME WITH A DX OF CHF EXACERBATION AND PULMONARY EDEMA. PATIENT HAS A HX OF DM, HTN, CHF AND CKD. ON BIPAP FIO2 40% CXR SHOWED PULMONARY EDEMA AND PLEURAL EFFUSION BUN AND CALRETININ 67/4.2 . ADMINISTERED LASIX IV AND CONTINUED HOME MEDS. CONSULTED WITH CARDIO AND NEPHRO. DC PLAN TO GO HOME WHEN STABLE. CM TO FOLLOW Addendum: 08/26/21 at 1116 by Brooklynn Carey RN DC PLANNING: RECEIVED A CALL FROM [facility] SPOKE WITH ABIGAIL STATED PATIENT'S SON REFUSED HOSPICE. 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 NOTIFIED DR ALBA HE WILL BE HERE AROUND NOON TO TALK TO HIM. CM TO FOLLOW
--- NOTE | 2021-08-22 14:54 | NUR ---
RECEIVED A REPLY FROM DR MERRITT FOR CRITICAL TROPONIN LEVEL 1.302. PER DR MERRITT PT ASYMPTOMATIC, TO JUST CONTINUE TO MONITOR.
--- NOTE | 2021-08-22 19:30 | NUR ---
RECEIVED REPORT FROM RN DAYSHIFT NURSE AT BEDSIDE FOR CONTINUITY OF CARE, SHE IS SITTING UP IN BED RESTING WITH EYES CLOSED BUT AROUSABLE TO NAME AND LIGHT TOUCH. PT IS ON 3 LITERS OF HUMIDIFIED AIR VIA N/C. PT HAS A WILSON CATHETER IN TACT AND DRAINING LIGHT YELLOW URINE.IV SITE ON RIGHT 20G IS SALINE LOCKED. PT HAS NO S/S OF PAIN OR DISTRESS NOTED. ALL FALLS PRECAUTIONS IN PLACE.
[2021-08-22] MEDS ORDERED: ALBUTEROL SULFATE/IPRATROPIU 3 ML SOL IH PRN (20:00)
[2021-08-22] MEDS ORDERED: ALBUTEROL SULFATE/IPRATROPIU 3 ML SOL IH ONE (20:04)
--- NOTE | 2021-08-22 20:30 | NUR ---
PT SITTING UP IN BED ALL REQUESTED NEEDS ATTENDED BY STAFF V/S FOLLOWS: T 97.2 P 76 R 14 B/P 147/72 02 97% ON 3 LITERS VIA N/C.
--- NOTE | 2021-08-22 21:30 | NUR ---
PT FINGERSTICK IS 140 NO HUMALOG COVERAGE NEEDED. PT GIVEN ORDERED LASIX IVP WELL LABETALOL PO AND HEPARIN SQ. PT RESPIRATIONS ARE EVEN AND UNLABORED, PT HAS NO C/O VOICED AT THIS TIME. ALL FALLS PRECAUTIONS IN PLACE.
[2021-08-23] VITALS: BP 129/70
--- NOTE | 2021-08-23 | NUR ---
ROUNDS DONE, PT ASLEEP, SHE CONTINUES ON 3 LITERS VIA N/C. V/S FOLLOWS; T 97.2 P 58 R 16 B/P 129/70 02 98% ON 3 LITERS VIA N/C. ALL FALLS PRECAUTIONS IN PLACE.
--- NOTE | 2021-08-23 01:14 | NUR ---
PATIENT HAS NO SIGNS OF SHORTNESS OF BREATH. NO BIPAP NEEDED AT THIS TIME
[2021-08-23 04:00] VITALS: BP 152/73
--- NOTE | 2021-08-23 06:00 | NUR ---
PT WAS TURNED, AND REPOSITIONED IN BED SHE REMAINS ON 3 LITERS VIA N/C AND HAS NO S/S OF PAIN OR DISTRESS NOTED. WILSON CATHETER DRAINED 600 LIGHT YELLOW URINE. ALL ORDERED PRECAUTIONS IN PLACE.
[2021-08-23] MEDS: BLOOD GLUCOSE MONITORING 1 DEV DEV FS SCH ×4 (07:34→20:22)
[2021-08-23 07:50] VITALS: BP 170/70
[2021-08-23 07:56] LABS: ALBUMIN 2.6 g/dL (3.4-5.0); ANION GAP 14.1 (8-16); ASPARTATE AMINOTRANSFERASE 38 U/L (15-37); CARBON DIOXIDE 26.8 mmol/L (21-32); CHLORIDE 100 mmol/L (98-107); GLUCOSE 152 mg/dL (74-106); POTASSIUM 3.9 mmol/L (3.5-5.1); SODIUM SERUM 137 mmol/L (136-145); TOTAL BILIRUBIN 0.3 mg/dL (0.0-1.0)
--- NOTE | 2021-08-23 08:00 | NUR ---
RECEIVED REPORT FROM OUTGOING RN FOR CONTINUITY OF CARE, PT LYING IN BED RESTING WITH EYES CLOSED. SHE IS ON 3LPM O2 VIA NC, PULSE OX 97% NO RESPIRATORY DISTRESS OBSERVED AT THIS TIME . ALL UNIVERSAL FALLS PRECAUTIONS IN PLACE.
[2021-08-23 08:50] LABS: BASOPHILS # (AUTO) 0.1 K/uL (0.00-0.22); BASOPHILS % (AUTO) 0.9 % (0.0-2.0); EOSINOPHILS # (AUTO) 0.2 K/uL (0-0.4); EOSINOPHILS % (AUTO) 2.1 % (0.0-4.0); HEMATOCRIT 26.2 % (36-48); HEMOGLOBIN 8.7 g/dL (12.0-16.0); LYMPHOCYTES # (AUTO) 1.7 K/uL (2.5-16.5); LYMPHOCYTES % (AUTO) 17.2 % (20.5-51.1); MEAN CORPUSCULAR HEMOGLOBIN 32 pg (27-31); MEAN CORPUSCULAR HGB CONC 33 g/dL (33-37); MEAN CORPUSCULAR VOLUME 94.6 fL (80-94); MONOCYTES # (AUTO) 0.4 K/uL (0.8-1.0); MONOCYTES % (AUTO) 4.1 % (1.7-9.3); NEUTROPHILS # (AUTO) 7.4 K/uL (1.8-7.7); NEUTROPHILS % (AUTO) 75.7 % (42.2-75.2); PLATELET COUNT (AUTO) 300 K/uL (140-450); RED BLOOD CELL COUNT(AUTO) 2.77 MIL/uL (4.20-5.40); RED CELL DISTRIBUTION WIDTH 12.9 % (11.6-13.7); WHITE BLOOD COUNT (AUTO) 9.8 K/uL (4.8-10.8)
[2021-08-23 08:56] LABS: UREA NITROGEN, BLOOD 69 mg/dL (7-18)
[2021-08-23] MEDS: FUROSEMIDE 40 MG/4 ML VIAL IVP SCH ×2 (09:28→20:20)
[2021-08-23] MEDS: LABETALOL 200 MG TAB PO SCH ×2 (09:29→20:22)
[2021-08-23] MEDS: DOCUSATE SODIUM 100 MG GELCAP PO SCH (09:29)
[2021-08-23] MEDS: NIFEdipine 60 MG TABER PO SCH (09:29)
--- NOTE | 2021-08-23 11:30 | NUR ---
BLOOD SUGAR 168, 2 UNITS OF INSULIN ADMINISTERED PER SLIDING SCALE
[2021-08-23 12:00] VITALS: BP 158/78
[2021-08-23] MEDS: INSULIN LISPRO SLIDING SCALE 100 UNITS/ML VIAL SUBQ PRN ×3 (12:25→20:31)
--- NOTE | 2021-08-23 15:20 | NUR ---
PATIENT SEEN AND EXAMINED BY DR. VALDEZ, RELAYED RESULTS OF HERNÁN THOMAS MD WANTS TO CONTINUE TO MONITOR PATIENTS OUTPUT VIA WILSON
[2021-08-23] MEDS: SPIRONOLACTONE 25 MG TAB PO SCH (15:28)
[2021-08-23 16:00] VITALS: BP 143/62
--- NOTE | 2021-08-23 17:00 | NUR ---
BLOOD SUGAR 173, 2 UNITS INSULIN ADMINISTERED PER EMAR
--- NOTE | 2021-08-23 18:39 | NUR ---
PATIENT RESTING COMFORTABLY IN BED WITH NO S/SX OF PAIN OR DISCOMFORT, WILL ENDORSE CARE TO PM NURSE
--- NOTE | 2021-08-23 19:30 | NUR ---
RECEIVED BEDSIDE REPORT FROM DAY SHIFT NURSE FOR CONTINUITY OF CARE.PT IS AWAKE, FAMILY AT BEDSIDE X 2, ATE 100% OF HER DINNER. PT ON O2 3L VIA NC. PT AFEBRILE, SKIN, DRY AND INTACT. WITH WILSON CATHETER DRAINING CLEAR YELLOW URINE. IV ON HER R HAND, G 20. PATENT AND INTACT. NO S/SX OF DISTRESS. ALL PRECAUTIONS IN PLACE. CALL LIGHT WITHIN REACH. WILL CONTINUE TO MONITOR.
[2021-08-23 20:00] VITALS: BP 155/67
--- NOTE | 2021-08-23 20:30 | NUR ---
SCHEDULED MEDICATIONS GIVEN. PT TOLERATED WELL. NO DISTRESS NOTED. BLOOD SUGAR WAS 170, 2 UNITS OF INSULIN GIVEN.
--- NOTE | 2021-08-23 23:58 | NUR ---
PT IS ASLEEP.BREATHING EQUAL AND UNLABORED.NO S/SX OF DISTRESS NOTED.ALL PRECAUTIONS IN PLACE. WILL CONTINUE TO MONITOR.
[2021-08-24] VITALS: BP_SYST 116; BP_SYST 155; BP_DIAS 67; BP_DIAS 71
[2021-08-24 04:00] VITALS: BP 184/88
--- NOTE | 2021-08-24 06:00 | NUR ---
BLOOD SUGAR WAS 140 . NO INSULIN COVERAGE NEEDED.
[2021-08-24] MEDS: BLOOD GLUCOSE MONITORING 1 DEV DEV FS SCH ×4 (06:10→20:59)
--- NOTE | 2021-08-24 06:26 | NUR ---
PT IS STABLE. NO ACUTE EVENTS THROUGHOUT THE NIGHT. NO S/SX OF DISTRESS NOTED. ALL NEEDS ATTENDED. ALL PRECAUTIONS IN PLACE. CALL LIGHT WITHIN REACH. WILL CONTINUE TO MONITOR.
[2021-08-24 06:59] LABS: BASOPHILS # (AUTO) 0.1 K/uL (0.00-0.22); BASOPHILS % (AUTO) 0.7 % (0.0-2.0); EOSINOPHILS # (AUTO) 0.3 K/uL (0-0.4); EOSINOPHILS % (AUTO) 3.9 % (0.0-4.0); HEMATOCRIT 24.1 % (36-48); LYMPHOCYTES # (AUTO) 1.7 K/uL (2.5-16.5); LYMPHOCYTES % (AUTO) 19.1 % (20.5-51.1); MEAN CORPUSCULAR HEMOGLOBIN 32 pg (27-31); MEAN CORPUSCULAR HGB CONC 33 g/dL (33-37); MEAN CORPUSCULAR VOLUME 95.4 fL (80-94); MONOCYTES # (AUTO) 0.3 K/uL (0.8-1.0); MONOCYTES % (AUTO) 3.8 % (1.7-9.3); NEUTROPHILS # (AUTO) 6.5 K/uL (1.8-7.7); NEUTROPHILS % (AUTO) 72.5 % (42.2-75.2); PLATELET COUNT (AUTO) 312 K/uL (140-450); RED BLOOD CELL COUNT(AUTO) 2.53 MIL/uL (4.20-5.40); RED CELL DISTRIBUTION WIDTH 12.7 % (11.6-13.7)
[2021-08-24 07:29] LABS: ALBUMIN 2.6 g/dL (3.4-5.0); ANION GAP 13.6 (8-16); ASPARTATE AMINOTRANSFERASE 30 U/L (15-37); CARBON DIOXIDE 29.5 mmol/L (21-32); CHLORIDE 99 mmol/L (98-107); GLUCOSE 147 mg/dL (74-106); POTASSIUM 4.1 mmol/L (3.5-5.1); SODIUM SERUM 138 mmol/L (136-145); TOTAL BILIRUBIN 0.4 mg/dL (0.0-1.0)
--- NOTE | 2021-08-24 07:30 | NUR ---
RECEIVED REPORT FROM MEDICAL IMAGING TECHNOLOGIST NURSE. PATIENT LYING DOWN IN BED SLEEPING, AROUSABLE BY VOICE. NO DISTRESS NOTED. DENIES ANY PAIN. ON 3 L VIA NC. SKIN INTACT, AAOX3, CALM, COOPERATIVE. SKIN INTACT. IV SITE INTACT, PATENT, AND ON SALINE LOCK. REVIEWED PLAN OF CARE WITH PATIENT. VERBALIZED UNDERSTANDING. SAFETY MEASURES IN PLACE, CALL LIGHT WITHIN REACH. WILL CONTINUE TO MONITOR.
[2021-08-24 07:48] LABS: UREA NITROGEN, BLOOD 66 mg/dL (7-18)
[2021-08-24 08:00] VITALS: BP 170/71
[2021-08-24] MEDS: LABETALOL 200 MG TAB PO SCH ×2 (08:33→21:40)
[2021-08-24] MEDS: DOCUSATE SODIUM 100 MG GELCAP PO SCH (08:33)
[2021-08-24] MEDS: NIFEdipine 60 MG TABER PO SCH (08:33)
[2021-08-24] MEDS: FUROSEMIDE 40 MG/4 ML VIAL IVP SCH ×2 (08:33→21:41)
[2021-08-24] MEDS: SPIRONOLACTONE 25 MG TAB PO SCH (08:33)
--- NOTE | 2021-08-24 08:43 | NUR ---
SCHEDULED MEDICATIONS DUE GIVEN. WILL CONTINUE TO MONITOR.
[2021-08-24 12:00] VITALS: BP 141/75
[2021-08-24] MEDS: INSULIN LISPRO SLIDING SCALE 100 UNITS/ML VIAL SUBQ PRN ×3 (12:55→21:43)
--- NOTE | 2021-08-24 13:25 | NUR ---
SCHEDULED MEDICATIONS DUE GIVEN. WILL CONTINUE TO MONITOR.
[2021-08-24 16:00] VITALS: BP 135/66
--- NOTE | 2021-08-24 17:20 | NUR ---
SCHEDULED MEDICATIONS DUE GIVEN. WILL CONTINUE TO MONITOR.
--- NOTE | 2021-08-24 19:29 | NUR ---
GAVE REPORT TO WASTEWATER TREATMENT PLANT SUPERVISOR NURSE FOR CONTINUITY OF CARE. PATIENT IN STABLE CONDITION.
--- NOTE | 2021-08-24 19:30 | NUR ---
RECEIVED BEDSIDE REPORT FROM DAY SHIFT NURSE FOR CONTINUITY OF CARE.PT IS AWAKE, FAMILY AT BEDSIDE,.PT ON O2 3L VIA NC. PT AFEBRILE, SKIN, DRY AND INTACT. WITH WILSON CATHETER DRAINING CLEAR YELLOW URINE. IV ON HER R HAND, G 20. PATENT AND INTACT. NO S/SX OF DISTRESS. ALL PRECAUTIONS IN PLACE. CALL LIGHT WITHIN REACH. WILL CONTINUE TO MONITOR.
[2021-08-24 20:00] VITALS: BP 153/78
--- NOTE | 2021-08-24 21:00 | NUR ---
SCHEDULED MEDICATIONS GIVEN. PT TOLERATED WELL. NO DISTRESS NOTED. BLOOD SUGAR WAS 172, 2 UNITS OF INSULIN GIVEN.
[2021-08-25] VITALS: BP 140/75
--- NOTE | 2021-08-25 03:00 | NUR ---
PT IS ASLEEP.BREATHING EQUAL AND UNLABORED.NO S/SX OF DISTRESS NOTED.ALL PRECAUTIONS IN PLACE. WILL CONTINUE TO MONITOR.
[2021-08-25 04:00] VITALS: BP 148/88
--- NOTE | 2021-08-25 06:30 | NUR ---
BLOOD SUGAR 166, 2 UNITS INSULIN ADMINISTERED PER EMAR
[2021-08-25] MEDS: BLOOD GLUCOSE MONITORING 1 DEV DEV FS SCH ×4 (06:59→21:00)
[2021-08-25] MEDS: INSULIN LISPRO SLIDING SCALE 100 UNITS/ML VIAL SUBQ PRN ×4 (07:00→22:06)
[2021-08-25 07:01] LABS: ALBUMIN 2.8 g/dL (3.4-5.0); ANION GAP 13.3 (8-16); ASPARTATE AMINOTRANSFERASE 32 U/L (15-37); CARBON DIOXIDE 30.9 mmol/L (21-32); CHLORIDE 98 mmol/L (98-107); GLUCOSE 186 mg/dL (74-106); POTASSIUM 4.2 mmol/L (3.5-5.1); SODIUM SERUM 138 mmol/L (136-145); TOTAL BILIRUBIN 0.3 mg/dL (0.0-1.0)
[2021-08-25 07:12] LABS: CREATININE 4.1 mg/dL (0.6-1.3); UREA NITROGEN, BLOOD 63 mg/dL (7-18)
--- NOTE | 2021-08-25 07:30 | NUR ---
RECEIVED REPORT FROM PM RN FOR CONTINUITY OF CARE, VSS, PT APPEARS ALSEEP, NO ACUTE DISTRESS, SAFETY MEASURES MAINTAINED, CALL LIGHT WITHIN REACH, WILL CONTINUE TO MONITOR
--- NOTE | 2021-08-25 07:34 | NUR ---
ENDORSED TO AM SHIFT IN STABLE CONDITION.
[2021-08-25 07:42] LABS: BASOPHILS # (AUTO) 0.2 K/uL (0.00-0.22); BASOPHILS % (AUTO) 2.2 % (0.0-2.0); EOSINOPHILS # (AUTO) 0.3 K/uL (0-0.4); EOSINOPHILS % (AUTO) 3.5 % (0.0-4.0); HEMATOCRIT 24.8 % (36-48); HEMOGLOBIN 8.4 g/dL (12.0-16.0); LYMPHOCYTES # (AUTO) 1.3 K/uL (2.5-16.5); LYMPHOCYTES % (AUTO) 15.5 % (20.5-51.1); MEAN CORPUSCULAR HEMOGLOBIN 32 pg (27-31); MEAN CORPUSCULAR HGB CONC 34 g/dL (33-37); MEAN CORPUSCULAR VOLUME 94.9 fL (80-94); MONOCYTES # (AUTO) 0.5 K/uL (0.8-1.0); MONOCYTES % (AUTO) 6.1 % (1.7-9.3); NEUTROPHILS # (AUTO) 6.3 K/uL (1.8-7.7); NEUTROPHILS % (AUTO) 72.7 % (42.2-75.2); PLATELET COUNT (AUTO) 335 K/uL (140-450); RED BLOOD CELL COUNT(AUTO) 2.62 MIL/uL (4.20-5.40); RED CELL DISTRIBUTION WIDTH 12.6 % (11.6-13.7); WHITE BLOOD COUNT (AUTO) 8.6 K/uL (4.8-10.8)
[2021-08-25 08:15] VITALS: BP 134/72
[2021-08-25] MEDS: LABETALOL 200 MG TAB PO SCH ×2 (08:17→21:51)
[2021-08-25] MEDS: NIFEdipine 60 MG TABER PO SCH (08:17)
[2021-08-25] MEDS: FUROSEMIDE 40 MG/4 ML VIAL IVP SCH ×2 (08:17→21:51)
[2021-08-25] MEDS: DOCUSATE SODIUM 100 MG GELCAP PO SCH (08:17)
[2021-08-25] MEDS: SPIRONOLACTONE 25 MG TAB PO SCH (08:18)
[2021-08-25 12:00] VITALS: BP 142/76
--- NOTE | 2021-08-25 14:13 | NUR ---
STABLE GOOD CHEST RISE SATURATION 99% ON SUPPLEMENTAL OXYGEN AT 3 LPM VIA NC TITRATED FIO2 TO 2 LPM VILMA/RN NOTIFIED
[2021-08-25 16:00] VITALS: BP 132/65
--- NOTE | 2021-08-25 16:15 | NUR ---
08/25/21 RD INITIAL ASSESSMENT COMPLETED PLEASE REFER TO NUTRITION ASSESSMENT UNDER CARE ACTIVITY FOR ESTIMATED NUTRITIONAL NEEDS. 1. RECOMMEND RENAL, CCHO 60 GM MECHANICAL SOFT DIET 2. MONITOR PO INTAKE AND NUTRITION-RELATED LAB VALUES 3. RD TO FOLLOW-UP 3-5 DAYS, MODERATE RISK HELLEN SORIANO, RD
--- NOTE | 2021-08-25 19:30 | NUR ---
RECEIVED REPORT FROM RN DAYSHIFT NURSE AT BEDSIDE FOR CONTINUITY OF CARE, PT IS AOX2 WITH PERIODS OF CONFUSION. SHE IS SITTING UP IN BED NO S/S OF DISTRESS RESPIRATIONS EVEN AND UNLABORED ON 2 LITERS VIA N/C. PT ALSO HAS A WILSON CATHETER INTACT AND DRAINING LIGHT YELLOW URINE. ALL FALLS PRECAUTIONS IN PLACE.
[2021-08-25 20:00] VITALS: BP 144/65
--- NOTE | 2021-08-25 20:30 | NUR ---
PT SITTING UP IN BED NO C/O VOICED V/S FOLLOWS: T 98.2 P 60 R 20 B/P 144/65 02 98% ON 2 LITERS VIA N/C. ALL FALLS PRECAUTIONS IN PLACE.
--- NOTE | 2021-08-25 21:15 | NUR ---
PT FINGERSTICK IS 168, SHE WAS GIVEN 2 UNITS OF HUMALOG PER S/S. PT ALSO GIVEN ORDERED IVP LASIX, LABETALOL AND HEPARIN SQ. PT EDUCATED REGARDING ORDERED MEDICATION REINFORCEMENT NEEDED.
--- NOTE | 2021-08-25 22:00 | NUR ---
ROUNDS DONE, PT SITTING UP IN BED AND FALLING ASLEEP. PT REPOSITIONED IN BED HOB MOVED FROM 90% TO 35%. ALL FALLS PRECAUTIONS IN PLACE.
[2021-08-26] VITALS: BP 131/67
--- NOTE | 2021-08-26 00:30 | NUR ---
ROUNDS DONE, PT IN BED ASLEEP NO S/S OF PAIN OR DISTRESS NOTED. PT CONTINUES ON 2 LITERS V/A N/C RESPIRATIONS EVEN AND UNLABORED. LUNG SOUND CLEAR. ALL ORDERED PRECAUTIONS IN PLACE.
--- NOTE | 2021-08-26 02:00 | NUR ---
PT SLEEPING IN BED NO S/S OF PAIN OR DISTRESS NOTED. HOB UP 35% PT CONTINUES ON 2 LITERS VIA N/C ALL FALLS PRECAUTIONS IN PLACE.
[2021-08-26 04:00] VITALS: BP 135/63
--- NOTE | 2021-08-26 06:30 | NUR ---
PT WAS TURNED, CLEANED AND ASSISTED TO TURN IN BED,. MAICOL CARE GIVEN. WILSON CATHETER IS ANCHORED. PT HAS WILSON CATHETER TO MEASURE STRICT I AND O. SHE DRAINED 800MLS OF CLEAR YELLOW URINE. FINGERSTICK IS 148, NO HUMALOG COVERAGE NEEDED. 02 CONTINUES AT 2 LITERS 02 VIA N/C. ALL ORDERED PRECAUTIONS IN PLACE.
[2021-08-26] MEDS: BLOOD GLUCOSE MONITORING 1 DEV DEV FS SCH ×2 (06:47→11:56)
[2021-08-26 06:58] LABS: BASOPHILS # (AUTO) 0.1 K/uL (0.00-0.22); BASOPHILS % (AUTO) 0.7 % (0.0-2.0); EOSINOPHILS # (AUTO) 0.4 K/uL (0-0.4); EOSINOPHILS % (AUTO) 4.7 % (0.0-4.0); HEMOGLOBIN 8.2 g/dL (12.0-16.0); LYMPHOCYTES # (AUTO) 1.2 K/uL (2.5-16.5); LYMPHOCYTES % (AUTO) 15.2 % (20.5-51.1); MEAN CORPUSCULAR HEMOGLOBIN 32 pg (27-31); MEAN CORPUSCULAR HGB CONC 34 g/dL (33-37); MEAN CORPUSCULAR VOLUME 94.2 fL (80-94); MONOCYTES # (AUTO) 0.4 K/uL (0.8-1.0); MONOCYTES % (AUTO) 5.5 % (1.7-9.3); NEUTROPHILS # (AUTO) 5.9 K/uL (1.8-7.7); NEUTROPHILS % (AUTO) 73.9 % (42.2-75.2); PLATELET COUNT (AUTO) 345 K/uL (140-450); RED BLOOD CELL COUNT(AUTO) 2.55 MIL/uL (4.20-5.40); RED CELL DISTRIBUTION WIDTH 12.7 % (11.6-13.7)
[2021-08-26 07:21] LABS: ALBUMIN 2.6 g/dL (3.4-5.0); ANION GAP 13.5 (8-16); ASPARTATE AMINOTRANSFERASE 28 U/L (15-37); CARBON DIOXIDE 28.4 mmol/L (21-32); CHLORIDE 98 mmol/L (98-107); GLUCOSE 154 mg/dL (74-106); POTASSIUM 3.9 mmol/L (3.5-5.1); SODIUM SERUM 136 mmol/L (136-145); TOTAL BILIRUBIN 0.3 mg/dL (0.0-1.0)
--- NOTE | 2021-08-26 07:34 | NUR ---
RECEIVED BEDSIDE REPORT FROM BRACELET AND BROOCH MAKER NURSE FOR CONTINUITY OF CARE. PT IS RESTING, ALERT AND ORIENTED X2.BEDBOUND. BREATHING IS EVEN AND UNLABORED AND ON 2L NC. NO SIGNS OF DISTRESS NOTED. CALL LIGHT WITHIN REACH. BED IN LOW LOCKED POSITION. ALL PRECAUTIONS IN PLACE. PT IS STABLE.
[2021-08-26 07:46] LABS: CREATININE 4.4 mg/dL (0.6-1.3); UREA NITROGEN, BLOOD 66 mg/dL (7-18)
[2021-08-26 08:00] VITALS: BP 159/65
[2021-08-26] MEDS: NIFEdipine 60 MG TABER PO SCH (09:49)
[2021-08-26] MEDS: FUROSEMIDE 40 MG/4 ML VIAL IVP SCH (09:49)
[2021-08-26] MEDS: SPIRONOLACTONE 25 MG TAB PO SCH (09:50)
[2021-08-26] MEDS: DOCUSATE SODIUM 100 MG GELCAP PO SCH (09:50)
[2021-08-26] MEDS: LABETALOL 200 MG TAB PO SCH (09:51)
[2021-08-26] MEDS: INSULIN LISPRO SLIDING SCALE 100 UNITS/ML VIAL SUBQ PRN (11:58)
[2021-08-26 12:00] VITALS: BP 157/83
--- NOTE | 2021-08-26 12:00 | NUR ---
PT IS RESTING, ALERT AND ORIENTED X2.BEDBOUND. BREATHING IS EVEN AND UNLABORED AND ON 2L NC. NO SIGNS OF DISTRESS NOTED. CALL LIGHT WITHIN REACH. BED IN LOW LOCKED POSITION. ALL PRECAUTIONS IN PLACE. PT IS STABLE.
[2021-08-26] MEDS ORDERED: FURO40TA9 PO (14:44)
[2021-08-26] MEDS ORDERED: SPIR25TA PO (14:44)
[2021-08-26 15:22] VITALS: BP 157/83
--- NOTE | 2021-08-26 16:00 | NUR ---
PT IV IS TAKEN OUT AND INTACT. WILSON FOR STRICT I+O TAKEN OUT. PT URINATED AFTER WELL. CHANGED PT AND WHEELED TO CAR IN FRONT WITH SON WITH 02 NC. ALERT AND ORIENTED X2.BEDBOUND. BREATHING IS EVEN AND UNLABORED AND ON 2L NC. NO SIGNS OF DISTRESS NOTED. PT IS NOW DC TO HOME PER SON REQUEST.
[2021-08-26] MEDS ORDERED: FUROSEMIDE 40 MG TAB PO SCH (17:00)
== END 2021-08-26 16:20 | disposition home or self-care (01) | DRG 189 ==
LOC: MED 19:05 → MTU 23:17
PROVIDERS: ADMIT Hospitalist; ATTEND Hospitalist
PROC: 5A09357 Assistance with Respiratory Ventilation, Less than 24 Consecutive Hours, Continuous Positive Airway Pressure (ICD-10-PCS; principal; 2021-08-21)
DX: J96.01 Acute respiratory failure with hypoxia (principal); I21.A1 Myocardial infarction type 2; I50.33 Acute on chronic diastolic (congestive) heart failure; I13.0 Hypertensive heart and chronic kidney disease with heart failure and stage 1 through stage 4 chronic kidney disease, or unspecified chronic kidney disease; I50.1 Left ventricular failure, unspecified; I16.1 Hypertensive emergency; N18.4 Chronic kidney disease, stage 4 (severe); I42.9 Cardiomyopathy, unspecified; E11.22 Type 2 diabetes mellitus with diabetic chronic kidney disease; F03.90 Unspecified dementia, unspecified severity, without behavioral disturbance, psychotic disturbance, mood disturbance, and anxiety; Z20.822 Contact with and (suspected) exposure to COVID-19; I34.0 Nonrheumatic mitral (valve) insufficiency; I36.1 Nonrheumatic tricuspid (valve) insufficiency; E78.5 Hyperlipidemia, unspecified; D64.9 Anemia, unspecified; I27.20 Pulmonary hypertension, unspecified; Z88.0 Allergy status to penicillin
CPT/HCPCS: 36415; 71045; 80053; 82728; 82948; 83540; 83880; 84484; 85025; 87081; 93005; 94640; 94660; 96365; 96366; 96375; 97110; 97163-GP; 97530; 99291; J1644; J1940; J2930; J3475; J7613; J7644